=== PATIENT | female | born 1945 | race Caucasian/White ===

== ENCOUNTER 2017-03-14 19:44 | Inpatient (IN) | payer MEDICARE, OTHER ==
[~2017-03-14] VITALS: Ht 157.4 cm; Wt 60.5 kg
--- NOTE | ~2017-03-14 | PR ---
[place], [place] PROGRESS NOTE NAME: ISAIAH FUENTES UNIT #: [id number] ROOM: 530 DOCTOR: PAT ORTIZ DO BIRTHDATE: [birth year] DOS: 03/20/2017 SUBJECTIVE: The patient complains of ongoing poor appetite with persistent nausea, vomiting and diarrhea, though she states these are relatively unchanged. She states she is following her fluid restrictions without any difficulties and using sodium chloride tablets. PHYSICAL EXAMINATION: VITAL SIGNS: Her blood pressure 120/57, pulse 64, respiration 18, temperature is 98.6 degrees. GENERAL: She is a well-appearing female, awake, alert, oriented x 3, currently in no apparent distress. LUNGS: Clear to auscultation and percussion. HEART: Regular, without S4, S3 rub appreciated. ABDOMEN: Soft, positive bowel sounds x 4. EXTREMITIES: No clubbing, cyanosis, no edema noted. LABORATORY DATA: Sodium is 126, potassium is 3.1, chloride of 87, CO2 of 30, BUN of 10, creatinine 0.52, glucose is 205. Calcium is 9.4. WBC is , hemoglobin 15.2, hematocrit 44.0, platelets are 313,000. ASSESSMENT: 1. Hypo natremia. The patient is making additional improvement with use of sodium chloride tablets and fluid restrictions. Volume status appears to be satisfactory. Electrolytes are currently satisfactory. 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 RECOMMENDATIONS: Agree with current management. Follow electrolytes closely. PAT ORTIZ DO CM:PNTRANS [id number] PAT ORTIZ DO 03/20/17 1351 interface
--- NOTE | ~2017-03-14 | CON ---
[place], [place] REPORT OF CONSULTATION NAME: ISAIAH FUENTES UNIT #: [id number] ROOM: 530 DOCTOR: JD FRAZIER MD BIRTHDATE: [birth year] DOS: 03/15/2017 REASON FOR CONSULTATION: Hyponatremia, hypokalemia. HISTORY OF PRESENT ILLNESS: The patient is a very pleasant 71-year-old woman who normally receives her care at [facility] in [facility]. She was hospitalized with acute onset of shortness of breath through the Emergency Department. In general, she states that she has also had high regular migraine headaches. She reports a lot of intake of fluids. She was seen at the chiropractor yesterday and was somewhat dizzy. She does not report a lot of history. From sodium standpoint, she has been on chronic SSRIs with Zoloft per her report. She takes medicines for pain as needed, usually hydrocodone. She has also a history of incontinence, mostly stress incontinence, follows with Dr. Marks and is on Ditropan. She reports getting cystoscopies and getting bladder repairs and collagen injections reported as well. We are consulted because her laboratories indicated sodium of 119 yesterday and is up to 120 today, she received some saline for this. Potassium was also replaced, went down from 3.2 to 3.9. Creatinine is 0.39 with a blood urea nitrogen of 6 this morning. She does have diabetes. Her glucose is 195. Her albumin is pending and phosphorus was not done. Urinalysis initially showed specific gravity of less than 1.005, 1+ ketones, trace blood, rbc's 2-4, white blood cells 0, epithelial cells, 2-4, urine osmolality 335, urine sodium 45, urine potassium 33 and urine chloride 71. This was done though after she was already given IV fluids. Her chest radiograph, and she does have a smoking history, reported as normal, cardiomediastinal silhouette with chronic interstitial lung changes and right lower lobe atelectasis, but no overt masses were mentioned. REVIEW OF SYSTEMS: Negative except per the HPI. PAST MEDICAL HISTORY: Chronic pain, history of [place], CAD, hyperlipidemia, depression, hypokalemia, bladder incontinence and depression. SOCIAL HISTORY: Habit, habitual smoker, denies alcohol use. FAMILY HISTORY: Positive for cancer and heart disease. PHYSICAL EXAMINATION: VITAL SIGNS: Temperature 98.4, pulse 57, respirations 18, blood pressure 146/61, saturating 100% on room air. GENERAL: She is awake, alert, pleasant, age-appropriate female lying in bed comfortably. HEAD AND NECK: Sclerae are anicteric. Oropharynx is clear. Mucous membranes slightly dry. NECK: No JVD or lymphadenopathy. BACK: No bruits. LUNGS: Clear bilaterally, decreased breath sounds throughout. CARDIOVASCULAR: Regular rate. No audible rub. No palpable lift or heave. ABDOMEN: Soft, nontender, nondistended. No rebound, no guarding. No CVA tenderness. NEUROLOGIC: Gross motor and sensation is intact. Cranial nerves are grossly [place], [place] REPORT OF CONSULTATION NAME: ISAIAH FUENTES UNIT #: [id number] ROOM: [facility] DOCTOR: JD FRAZIER MD BIRTHDATE: [birth year] intact. PSYCHIATRIC: Mood, affect and insight, judgment and memory appear intact. SKIN: Without diffuse rashes or breakdowns. LABORATORY AND DIAGNOSTIC DATA: Sodium 120, up from 119, potassium 3.9, chloride 86, bicarbonate 26, BUN 6, creatinine 0.38, glucose 195. Urinalysis as above. Urine sodium 45, urine potassium 33, urine chloride 71. White blood cell count 7.8, hemoglobin 12.6, platelets 217. CT head without contrast, mild ischemic changes. CT neck, no acute fractures. Chest radiograph negative as per above. ASSESSMENT AND PLAN: Hyponatremia: This may be multifactorial, possible SIADH from drugs, possible underlying neoplasm given her smoking history, but also some polydipsia is likely presenting itself here as well. Urine osmolality was slightly low, but not as low as I would expect it for some simple polydipsia. Follow up levels and labs have been requested for later today at around 2:00 p.m. I encouraged her to remain in the hospital because she does want to leave because of the severe nature of the hyponatremia and the rapid correction and the possibility of chronic demyelination syndrome or CPM leaving her with permanent brain damage. She certainly does not want that. She vocalizes understanding of staying in the hospital. She does have hypertension. She does not report taking any diuretics, though she does have some hypokalemia what sounds like as a chronic basis that could be further evaluated perhaps down the road. I would probably recommend we can reduce her SSRI if okay with the primary team, but I would not discontinue it altogether quickly just in case, but she states that she was on this for a long time and her sodium levels that we have from 2013 were normal. I have requested a saline [facility] and PCP records in the last 2 years if we can find any more recent sodium levels that would be certainly helpful. Potassium has been replaced and we will continue to follow up on that as well. Thank you very much for the kind consultation. We will continue to follow with you. JD FRAZIER MD CM:CONSTR:REPORT OF CONSULTATION 1228 03/15/17 1359 interface
--- NOTE | ~2017-03-14 | PR ---
[place], [place] PROGRESS NOTE NAME: ISAIAH FUENTES UNIT #: [id number] ROOM: 530 DOCTOR: FREDDIE ENAMORADOJD S BIRTHDATE: [birth year] DOS: 03/16/2017 NEPHROLOGY PROGRESS NOTE SUBJECTIVE: The patient seen in followup of abnormal electrolytes. The patient is without acute distress. She is noted to have had a retroperitoneal mass and a mesenteric mass and she underwent CT-guided biopsy of that today. Pathology is still pending. She also went through a CT of the neck and soft tissue with no evidence of adenopathy there. Again, this mass was noted in conglomerate in the small bowel mesentery which increased from around 3 x 8 cm to 5 x 13 cm. From a renal standpoint, her sodium has improved on fluid restriction from 120 to 131 yesterday and is 130 today. Potassium slightly low at 3.1. She had some diarrhea noted yesterday. BUN and creatinine are 3 and 0.46 today. A1c is 6.9. LFTs are otherwise unremarkable. Dr. Sotelo has seen her from a hematology standpoint. Laboratories and diagnostics as mentioned above. PHYSICAL EXAMINATION: VITAL SIGNS: Temperature 97.7, pulse 94, respirations 18, blood pressure 142/86, 96% on room air. GENERAL: Awake, alert and oriented, in no acute distress, speaking on the phone with her . LUNGS: Decreased breath sounds, no audible rales. CARDIOVASCULAR: Rate regular. No audible rub. No palpable lift or heave. ABDOMEN: Soft, nontender, nondistended. No rebound, no guarding. No CVA tenderness. NEUROLOGIC: Mood and affect, speech and insight appear intact. SKIN: Without diffuse rashes or breakdown. LABORATORIES AND DIAGNOSTICS: Sodium 130, others as above. ASSESSMENT AND PLAN: Hyponatremia, multifactorial, possible syndrome of inappropriate antidiuretic hormone as well as possible neoplasm induced, some mild polydipsia may have presented itself with this as well from acute standpoint, but in general urine osmolality was a bit higher than I would expect for simple polydipsia. Her serum sodium has improved and is stable from yesterday, but did go down a bit, continue on a fluid restriction, encourage oral protein intake. She did have some diarrhea yesterday, and follow up biopsy results. Her hypokalemia has been replaced. Continue to follow on this as well. [place], [place] PROGRESS NOTE NAME: ISAIAH FUENTES UNIT #: [id number] ROOM: 530 DOCTOR: JD FRAZIER MD BIRTHDATE: [birth year] JD FRAZIER MD CM:PNTRANS [id number] 6 JD FRAZIER MD 03/17/17216 interface
--- NOTE | ~2017-03-14 | PR ---
[place], [place] PROGRESS NOTE NAME: ISAIAH FUENTES UNIT #: [id number] ROOM: 530 DOCTOR: JD FRAZIER MD BIRTHDATE: [birth year] DOS: 03/19/2017 SUBJECTIVE: The patient was seen in followup of hyponatremia. She was having some headaches. She was given some triptans as well, continues to have nausea, did eat a little bit breakfast, continues on fluid restriction. Sodium levels are unchanged compared to yesterday. Creatinine is stable, slightly below, but 0.55. She has been started on Toradol as well. Magnesium levels are low. Phosphorus levels are still slightly on the low side. IV fluids were stopped. PHYSICAL EXAMINATION: VITAL SIGNS: 98.0, 58, 20, 140/86, 97%. GENERAL: Elderly ill appearing, in distress from pain, not from and respiratory status, chronic smoking phenotype, lying in bed comfortably without significant work of breathing abnormalities. LUNGS: Clear bilaterally, but decreased breath sounds. CARDIOVASCULAR: Rate regular. No audible rub. ABDOMEN: Soft, nontender, nondistended. No rebound, no guarding. No CVA tenderness. LABORATORIES AND DIAGNOSTICS: Sodium 123, potassium 3.9, chloride 86, bicarbonate 29, BUN 7, creatinine 0.55, glucose 195, calcium 9.7, phosphorus 2.4, magnesium 1.4, albumin 3.5. ASSESSMENT AND PLAN: Hyponatremia, stable. Avoid IV fluids, likely SIADH, possibly secondary to her mass, also possible decreased intake as well as ongoing issues with pain and Nausea. Continue on 1 liter of fluid restriction, started on salt tablet yesterday. Replace hypomagnesemia today IV, may need to watch for acute kidney injury with ongoing NSAID use and rising creatinine slightly. JD FRAZEIR MD CM:PNTRANS 1351 05 JD FRAZIER MD 03/19/172305 interface
--- NOTE | ~2017-03-14 | PR ---
[place], [place] PROGRESS NOTE NAME: ISAIAH FUENTES UNIT #: [id number] ROOM: 530 DOCTOR: JOIE RUSSELL MD BIRTHDATE: [birth year] DOS: 03/20/2017 SUBJECTIVE: The patient is doing better. She is awake, alert and responsive. REVIEW OF SYSTEMS: HEENT: No trouble swallowing. No double vision. No loss of vision. No pain. ENT AND RESPIRATORY: No wheeze. No change in voice. No cough. No shortness of breath. No coughing up blood. No epistaxis. CARDIOLOGIC: No chest pain. No dizziness. No irregular heartbeat. No leg edema. No palpitations. No shortness of breath. HEMATOLOGIC AND LYMPH: No past transfusion. No fatigue. No loss of appetite. No easy bruising. GASTROENTEROLOGIC: No change in bowel habits. No vomiting blood. No abdominal cramping. No nausea. No vomiting. No diarrhea. No constipation. No blood in stool. FEMALE REPRODUCTIVE: No dyspareunia. No pelvic pain. MUSCULOSKELETAL: No back pain. No muscle pain or weakness. No tingling/numbness. UROLOGIC: No pain with urination. No difficulty urinating. No frequent urination. NEUROLOGIC: No burning pain in feet. No trouble with coordination. No loss of consciousness. No headache. No tingling/numbness. No memory loss. PHYSICAL EXAMINATION: GENERAL: She is a pleasant woman, in no apparent distress. VITAL SIGNS: Blood pressure 146/66, respirations 16, pulse 63 and temperature 98.3. HEENT: Normocephalic, atraumatic. NECK AND THYROID: Supple. No JVD, thyromegaly or lymphadenopathy. HEART: Normal S1, S2. Regular rate and rhythm. LUNGS: Clear to auscultation and percussion. ABDOMEN: Soft. Nontender, nondistended. Bowel sounds present. EXTREMITIES: Normal ROM. No clubbing. No edema. LABORATORY DATA: White count 11.3, hemoglobin 15.2, hematocrit 44.0, MCV 87.5 and platelet count of ____. Sodium 126, potassium 3.9, chloride 87, bicarbonate 30 and EGFR is more than 60. ASSESSMENT: 1. Status post retroperitoneal biopsy, results are pending. 2. Hyponatremia. 3. Hypokalemia. PLAN: We will discuss with ____ about the biopsy reports depending on further intervention. I had a detailed discussion with the patient about it, seemed to understand it. Ample time was given to the patient to ask me questions. [place], [place] PROGRESS NOTE NAME: ISAIAH FUENTES UNIT #: [id number] ROOM: [facility] DOCTOR: JOIE RUSSELL MD BIRTHDATE: [birth year] JOIE RUSSELL MD CM:SELENE 1321 1344 JOIE RUSSELL MD 03/20/17 1343 interface
--- NOTE | ~2017-03-14 | PR ---
[place], [place] PROGRESS NOTE NAME: ISAIAH FUENTES UNIT #: [id number] ROOM: 530 DOCTOR: JOIE RUSSELL MD BIRTHDATE: [birth year] DOS: 03/18/2017 SUBJECTIVE: The patient is doing better. She is awake, alert and responsive. She had a retroperitoneal biopsy done, the results are pending. REVIEW OF SYSTEMS HEENT: No trouble swallowing. No double vision. No loss of vision. No pain. ENT AND RESPIRATORY: No wheeze. No change in voice. No cough. No shortness of breath. No coughing up blood. No epistaxis. CARDIOLOGIC: No chest pain. No dizziness. No irregular heartbeat. No leg edema. No palpitations. No shortness of breath. HEMATOLOGIC AND LYMPH: No past transfusion. No fatigue. No loss of appetite. No easy bruising. GASTROENEROLOGIC: No change in bowel habits. No vomiting blood. No abdominal cramping. No nausea. No vomiting. No diarrhea. No constipation. No blood in stool. FEMALE REPRODUCTIVE: No dyspareunia. No pelvic pain. MUSCULOSKELETAL: No back pain. No muscle pain or weakness. No tingling/numbness. UROLOGIC: No pain with urination. No difficulty urinating. No frequent urination. NEUROLOGIC: No burning pain in feet. No trouble with coordination. No loss of consciousness. No headache. No tingling/numbness. No memory loss. PHYSICAL EXAMINATION GENERAL: On examination, a pleasant woman, in no apparent distress. VITAL SIGNS: Stable. She is afebrile. HEENT: Normocephalic, atraumatic. NECK AND THYROID: Supple. No JVD, thyromegaly, or lymphadenopathy. HEART: Normal S1, S2. Regular rate and rhythm. LUNGS: Clear to auscultation and percussion. ABDOMEN: Soft. Nontender, nondistended. Bowel sounds present. EXTREMITIES: Normal ROM. No clubbing. No edema. LABORATORY DATA: Glucose of 204, BUN of 4, EGFR is more than 60. Sodium 143, potassium 3.2, chloride 86, bicarbonate 28, calcium 9.2, phosphorus 2.5, albumin 3.6. White count of 8.4, hemoglobin 14.1, hematocrit 41.2, MCV 88.4, platelet count 250, lymphocyte percentage was 10.1. ALT is 900. RADIOLOGY DATA: CT of the head showed no evidence of cervical lymphadenopathy. CT of the head showed no intracranial abnormalities. ASSESSMENT: 1. Retroperitoneal lymphadenopathy, status post CT-guided biopsy. 2. Hyponatremia. 3. Major depression. 4. Coronary artery disease. PLAN: She had a biopsy done. We will wait for the path reports to come back. Depending upon that further intervention. In the meantime, I reviewed the CAT [place], [place] PROGRESS NOTE NAME: ISAIAH FUENTES UNIT #: [id number] ROOM: [facility] DOCTOR: JOIE RUSSELL MD BIRTHDATE: [birth year] scans. I have discussed the patient in detail. Ample time was given to the patient to ask me questions. JOIE RUSSELL MD CM:PNTRANS [phone] JOIE RUSSELL MD 03/19/17 0237 interface
--- NOTE | ~2017-03-14 | PR ---
[place], [place] PROGRESS NOTE NAME: ISAIAH FUENTES UNIT #: [id number] ROOM: 530 DOCTOR: JOIE RUSSELL MD BIRTHDATE: [birth year] DOS: 03/19/2017 SUBJECTIVE: The patient is doing better. She is awake, alert and responsive. PHYSICAL EXAMINATION: GENERAL: Pleasant woman in no apparent distress. VITAL SIGNS: Stable. She is afebrile. HEENT: Normocephalic, atraumatic NECK AND THYROID: Supple. No JVD, thyromegaly, or lymphadenopathy. HEART: Normal S1, S2. Regular rate and rhythm. LUNGS: Clear to auscultation and percussion. ABDOMEN: Soft. Nontender, nondistended. Bowel sounds present. EXTREMITIES: Normal ROM. No clubbing. No edema. LABORATORY DATA: Sodium 123, potassium 3.2, chloride 86. ASSESSMENT: 1. Status post biopsy of the retroperitoneal lymph nodes. 2. Hypokalemia. 3. Hyponatremia. PLAN: I checked the path reports, which are pending at this time. I am going to talk to the pathologist. Depending upon that, further intervention discussed. JOIE RUSSELL MD CM:SELENE 1334 [id number] JOIE RUSSELL MD 03/19/17 1418 interface
--- NOTE | ~2017-03-14 | PR ---
[place], [place] PROGRESS NOTE NAME: ISAIAH FUENTES UNIT #: [id number] ROOM: 530 DOCTOR: JOIE RUSSELL MD BIRTHDATE: [birth year] DOS: 03/17/2017 SUBJECTIVE: The patient is doing better. She had a percutaneous biopsy of the retroperitoneal mass, path is pending. PHYSICAL EXAMINATION: GENERAL: She is pleasant woman in no apparent distress. VITAL SIGNS: Stable. She is afebrile. HEENT: Normocephalic, atraumatic. NECK AND THYROID: Supple. No JVD, thyromegaly, or lymphadenopathy. HEART: Normal S1, S2. Regular rate and rhythm. LUNGS: Clear to auscultation and percussion. ABDOMEN: Soft. Nontender, nondistended. Bowel sounds present. EXTREMITIES: Normal ROM. No clubbing. No edema. LABORATORY DATA: Sodium 130, potassium 3.1, chloride 94, bicarbonate 29. White count of 8.0, hemoglobin 14.1, hematocrit 40.6, platelet count of 261. ASSESSMENT: 1. Status post percutaneous biopsy of the retroperitoneal mass by Radiology. 2. Hyponatremia. 3. Hypokalemia. PLAN: We will wait for the biopsy reports to come back depending on the further intervention. I had detailed discussion with the patient about it, seemed to understand it. JOIE RUSSELL MD CM:PNTRANS [id number] JOIE RUSSELL MD 03/19/17 0345 interface
--- NOTE | ~2017-03-14 | CON ---
[place], [place] REPORT OF CONSULTATION NAME: ISAIAH FUENTES UNIT #: [id number] ROOM: 530 DOCTOR: JOIE RUSSELL MD BIRTHDATE: [birth year] DOS: 03/16/2017 HISTORY OF PRESENT ILLNESS: The patient is a pleasant 71-year-old [place] woman who presented to the Emergency Department with severe migraine headaches after she went to the chiropractor. As per the daughter, the chiropractor released a lot of pressure in the back and then she started having headaches. While in the ER, she was found to be hyponatremic as well as hypovolemic. Further workup revealed mesenteric mass and I am consulted for further evaluation and management. PAST MEDICAL HISTORY: Significant for chronic low back pain, history of VT, hyperlipidemia, hypokalemia, lower GI bleed, major depression and overactive bladder. PAST SURGICAL HISTORY: History of coronary artery stent, status post left heart catheterization, history of cholecystectomy, x 3 and bladder surgery. SOCIAL HISTORY: No drinking or drug abuse. She is a smoker. FAMILY HISTORY: Father of cancer. Mother of heart disease and cardiac disease. ALLERGIES: ACETAMINOPHEN, METOPROLOL, OXYCODONE. MEDICATIONS: Aspirin, atorvastatin, carvedilol, hydrocodone, oxybutynin, sodium pantoprazole, potassium chloride and sertraline. RADIOLOGY: CT scan of the cervical spine showed no acute fracture. CT scan of the head showed no acute abnormalities. CT of the chest, abdomen and pelvis showed a conglomerate mass in the small bowel mesentery as well as mildly enlarged metastatic nodes suspicious for malignancy. Consideration should be given for lymphoma. There is colonic diverticulosis. No findings of diverticulitis. REVIEW OF SYSTEMS: CONSTITUTIONAL: No chills. No fatigue. No fever. No loss of appetite. No night sweats. No weakness. No weight loss. HEENT: No trouble swallowing. No loss of smell. No loss of hearing. No double vision. No pain. No discharge. ENT AND RESPIRATORY: No wheeze. No sore throat. No change in voice. No hearing loss. No nose bleed. No cough. No trouble breathing through nose. No shortness of breath. No coughing up blood. No epistaxis. CARDIOVASCULAR: No chest pain. No dizziness. No irregular heartbeat. No leg edema. No pain in legs while walking. No palpitations. No shortness of breath. DERMATOLOGIC: No acne. No hives. No laceration. No mole. No rash. ENDOCRINE: No cold intolerance. No diabetes. No fatigue. No hot flashes. No polydipsia. No polyuria. No urinating frequently. No weight loss. HEMATOLOGIC AND LYMPH: No fatigue. No easy bruising. GASTROENTEROLOGIC: No change in bowel habits. No indigestion. No frequent [place], [place] REPORT OF CONSULTATION NAME: ISAIAH FUENTES UNIT #: [id number] ROOM: [facility] DOCTOR: JOIE RUSSELL MD BIRTHDATE: [birth year] bloating. No vomiting blood. No abdominal cramping. No nausea. No heartburn. No vomiting. No abdominal pain. No dysphagia. No diarrhea. No constipation. No blood in stool. FEMALE REPRODUCTIVE: No vaginal itching. No difficulty urinating. No heavy periods. No dyspareunia. No sexually active. No dysmenorrhea. No pelvic pain. No breast pain. No nipple discharge. No abnormal vaginal discharge. No hot flashes. MUSCULOSKELETAL: No back pain. No muscle pain or weakness. No neck pain. No tingling/numbness. No swelling/bruising. No osteoporosis treatment. OPTHALMOLOGIC: No double vision. No diminished vision. No loss of vision. UROLOGIC: No dysuria. No frequent nighttime urination. No irregular periods. No pain with urination. No difficulty urinating. No blood in urine. No frequent urination. No urinary incontinence. NEUROLOGIC: No loss of sensation in specific body area. No vertigo. No burning pain in feet. No trouble with balance. No trouble with coordination. No loss of consciousness. No loss of feeling/power. No confusion. No headache. No tingling/numbness. PSYCHOLOGIC: No tinnitus. No headaches. No shortness of breath. No weight decrease. No nausea. No vomiting. No abdominal discomfort. No constipation. No diarrhea. No depression. No anxiety. PHYSICAL EXAMINATION: GENERAL: She is a pleasant woman, in no apparent distress. VITAL SIGNS: Stable. She is afebrile. HEENT: Oral mucosa appears intact. The external ears are normal in appearance. Nares are patent without lesions, exudates, erythema, or inflammation. Tongue is symmetrical. Uvula is midline. NECK AND THYROID: Neck supple without palpable masses. Trachea is midline. No thyromegaly. No carotid bruit or JVD. BREASTS: Normal. Nipples unremarkable. No drainage. No lumps felt on either side. HEART: Normal S1, S2, without significant murmur, rub, or gallop. LUNGS: Clear to auscultation and percussion with good air entry bilaterally. The patient is breathing easily without the use of accessory muscles. Diaphragmatic excursions are intact. ABDOMEN: No costovertebral angle tenderness. Soft. No organomegaly or masses. Nontender. No hernias present. Liver and spleen are not palpable. LYMPHATIC: No adenopathy noted in the cervical, supraclavicular, axillary or inguinal regions. NEUROLGIC: Nonfocal. Oriented to person, place, and time. MENTAL STATUS: Appropriate for mood and affect. PERIPHERAL PULSES: No varicosities. Femoral and pedal pulses are palpable. EXTREMITIES: Without cyanosis, clubbing or edema. No gross anomalies. ASSESSMENT: 1. Mesenteric mass. 2. Hyponatremia. 3. Hypokalemia. 4. Low back pain. [place], [place] REPORT OF CONSULTATION NAME: ISAIAH FUENTES UNIT #: [id number] ROOM: [facility] DOCTOR: JOIE RUSSELL MD BIRTHDATE: [birth year] PLAN: Possibility of lymphoma. We will ask Dr. Javier to do a biopsy so that we can get a bigger piece to see if she has enough specimen to evaluate for lymphoma. Depending upon that further intervention will be done. In the meantime, she will be followed by Renal also. Ample time was given to the patient to ask me questions. We will follow. Thanks for consulting and letting me participate in the care of this patient. JOIE RUSSELL MD CM:CONSTR:REPORT OF CONSULTATION 0933 03/19/17 0315 interface
--- NOTE | ~2017-03-14 | PR ---
[place], [place] PROGRESS NOTE NAME: ISAIAH FUENTES UNIT #: [id number] ROOM: 530 DOCTOR: JOIE RUSSELL MD BIRTHDATE: [birth year] DOS: 03/16/2017 The patient was seen because of mesenteric lymphadenopathy and mass and weight loss. Full consult to follow. We will be asking Dr. Nix for possible biopsy of the mesenteric mass. These were discussed with the patient. JOIE RUSSELL MD CM:PNTRANS 0845 4 JOIE RUSSELL MD 03/16/1725 interface
[~2017-03-14 19:44] MED LIST: HYDROCODONE BIT1 T11 PO; K-DUR 2020 MEQ PO; LIPITOR80 MG PO; OXYBUTYNIN CHLOR5 MG PO; PROTONIX40 MG PO; SERTRALINE HYD100 MG PO; [UNRECOGNIZED DRUG - OTHER] PO
[2017-03-14 19:53] VITALS: BP 153/87
[2017-03-14 22:07] VITALS: BP 142/68
[2017-03-14 22:18] LABS: BASO % 0.3 % (0.0-1.0); EOS # 0.1 10*3/uL (0.0-0.4); EOS % 0.9 % (1.0-4.0); HEMATOCRIT 35.7 % (37.0-47.0); HEMOGLOBIN 12.6 g/dl (12.0-16.0); LYMPH # 0.9 10*3/uL (1.3-4.4); LYMPH % 10.8 % (27.0-41.0); MEAN CELL VOLUME 86.9 fl (81.0-99.0); MEAN CORPUSCULAR HGB 30.7 pg (27.0-31.0); MEAN CORPUSCULAR HGB CONC 35.3 g/dl (33.0-37.0); MEAN PLATELET VOLUME 10.4 fl (9.6-12.3); MONO # 0.9 10*3/uL (0.1-1.0); MONO % 11.2 % (3.0-9.0); NEUT % 76.5 % (47.0-73.0); PLATELET COUNT AUTOMATED 217 10*3/uL (130-400); RED BLOOD COUNT 4.11 10*6/uL (4.10-5.10); RED CELL DISTRI WIDTH 13.8 % (0-14.5); WHITE BLOOD COUNT 7.8 10*3/uL (4.8-10.8)
[2017-03-14 22:33] LABS: BUN 8 mg/dl (7-24); C-REACTIVE PROTEIN 0.36 MG/DL (0-0.3); CARBON DIOXIDE 23 mmol/L (21-32); CHLORIDE 85 mmol/L (98-107); EST GLOM FILT AFRICAN AMERICAN > 60 ml/min; GLUCOSE 193 mg/dL (65-99); POTASSIUM 3.2 mmol/L (3.5-5.1)
[2017-03-14 22:36] LABS: SODIUM 119 mmol/L (136-145)
[2017-03-14 22:48] VITALS: BP 136/74
[2017-03-14 23:52] VITALS: BP 145/90
[2017-03-15] MEDS ORDERED: COREG3.125 MG PO (00:09)
[2017-03-15] MEDS ORDERED: LIPITOR80 MG PO (00:13)
[2017-03-15] MEDS ORDERED: ASPIRIN CHEWABL81 MG PO (00:16)
[2017-03-15 04:00] VITALS: BP 145/90
[2017-03-15 06:47] LABS: BILIRUBIN NEGATIVE (NEGATIVE); BLOOD TRACE-INTACT (NEGATIVE); CLARITY CLEAR (CLEAR); COLOR YELLOW (YELLOW); GLUCOSE 3+ (NEGATIVE); KETONE 1+ (NEGATIVE); LEUKO ESTERASE NEGATIVE (NEGATIVE); NITRITE NEGATIVE (NEGATIVE); PROTEIN NEGATIVE (NEGATIVE); SPECIFIC GRAVITY <= 1.005 (1.005-1.030)
[2017-03-15 06:58] LABS: BACTERIA TRACE; WBC 0-2 wbc/hpf (0-5)
[2017-03-15 06:59] LABS: URINE REFLEX COMMENT NO (NO)
[2017-03-15 07:45] LABS: BUN 6 mg/dl (7-24); CARBON DIOXIDE 26 mmol/L (21-32); CHLORIDE 86 mmol/L (98-107); EST GLOM FILT AFRICAN AMERICAN > 60 ml/min; GLUCOSE 195 mg/dL (65-99); POTASSIUM 3.9 mmol/L (3.5-5.1); SODIUM 120 mmol/L (136-145)
[2017-03-15 08:00] VITALS: BP 146/60
[2017-03-15 12:00] VITALS: BP 136/47
[2017-03-15 14:21] LABS: ALBUMIN 3.3 gm/dl (3.1-4.5); BUN 3 mg/dl (7-24); CARBON DIOXIDE 31 mmol/L (21-32); CHLORIDE 95 mmol/L (98-107); EST GLOM FILT AFRICAN AMERICAN > 60 ml/min; GLUCOSE 140 mg/dL (65-99); PHOSPHOROUS 2.4 mg/dL (2.5-4.9); POTASSIUM 4.2 mmol/L (3.5-5.1); SODIUM 131 mmol/L (136-145)
[2017-03-15 16:00] VITALS: BP 154/48
[2017-03-15 20:00] VITALS: BP 142/63; BP 1548/58
[2017-03-16] VITALS (13 sets, daily range): BP systolic 120–152; BP diastolic 44–91
[2017-03-16] MEDS ORDERED: HYDROCODONE BIT1 T20 PO (04:55)
[2017-03-16 06:57] LABS: BASO % 0.4 % (0.0-1.0); EOS % 0.3 % (1.0-4.0); HEMATOCRIT 40.6 % (37.0-47.0); HEMOGLOBIN 14.1 g/dl (12.0-16.0); LYMPH # 0.6 10*3/uL (1.3-4.4); MEAN CELL VOLUME 87.7 fl (81.0-99.0); MEAN CORPUSCULAR HGB 30.5 pg (27.0-31.0); MEAN CORPUSCULAR HGB CONC 34.7 g/dl (33.0-37.0); MONO # 0.8 10*3/uL (0.1-1.0); MONO % 9.6 % (3.0-9.0); NEUT # 6.5 10*3/uL (2.3-7.9); NEUT % 81.2 % (47.0-73.0); PLATELET COUNT AUTOMATED 261 10*3/uL (130-400); RED BLOOD COUNT 4.63 10*6/uL (4.10-5.10); RED CELL DISTRI WIDTH 14.1 % (0-14.5)
[2017-03-16 07:10] LABS: HEMOGLOBIN A1c 6.9 % (4.8-5.6)
[2017-03-16 07:29] LABS: ALBUMIN 3.5 gm/dl (3.1-4.5); CARBON DIOXIDE 29 mmol/L (21-32); CHLORIDE 94 mmol/L (98-107); GLUCOSE 156 mg/dL (65-99); SODIUM 130 mmol/L (136-145)
[2017-03-16 07:32] LABS: ALKALINE PHOSPHATASE 96 U/L (45-117); BILIRUBIN, TOTAL 0.7 mg/dl (0.2-1.0); BUN 3 mg/dl (7-24); EST GLOM FILT AFRICAN AMERICAN > 60 ml/min; SGOT/AST 15 IU/L (3-35); SGPT/ALT 17 U/L (12-78); TOTAL PROTEIN 6.8 gm/dL (6.4-8.2)
[2017-03-16 07:33] LABS: POTASSIUM 3.1 mmol/L (3.5-5.1)
[2017-03-16 12:17] LABS: INTERNATIONAL NORM RATIO 1.1 (2.0-3.5); PROTHROMBIN TIME 11.9 SECONDS (9.0-12.4)
[2017-03-17] VITALS: BP 149/55
[2017-03-17 07:13] LABS: BASO % 0.5 % (0.0-1.0); EOS # 0.1 10*3/uL (0.0-0.4); EOS % 0.8 % (1.0-4.0); HEMATOCRIT 41.2 % (37.0-47.0); HEMOGLOBIN 14.1 g/dl (12.0-16.0); LYMPH # 0.9 10*3/uL (1.3-4.4); LYMPH % 10.1 % (27.0-41.0); MEAN CELL VOLUME 88.4 fl (81.0-99.0); MEAN CORPUSCULAR HGB 30.3 pg (27.0-31.0); MEAN CORPUSCULAR HGB CONC 34.2 g/dl (33.0-37.0); MEAN PLATELET VOLUME 10.8 fl (9.6-12.3); MONO # 0.8 10*3/uL (0.1-1.0); MONO % 9.9 % (3.0-9.0); NEUT # 6.6 10*3/uL (2.3-7.9); NEUT % 78.2 % (47.0-73.0); PLATELET COUNT AUTOMATED 250 10*3/uL (130-400); RED BLOOD COUNT 4.66 10*6/uL (4.10-5.10); RED CELL DISTRI WIDTH 14.2 % (0-14.5); WHITE BLOOD COUNT 8.4 10*3/uL (4.8-10.8)
[2017-03-17 07:47] LABS: BUN 6 mg/dl (7-24); CARBON DIOXIDE 28 mmol/L (21-32); CHLORIDE 90 mmol/L (98-107); GLUCOSE 212 mg/dL (65-99); POTASSIUM 3.5 mmol/L (3.5-5.1); SODIUM 127 mmol/L (136-145)
[2017-03-17 07:48] LABS: EST GLOM FILT AFRICAN AMERICAN > 60 ml/min
[2017-03-17 08:00] VITALS: BP 154/60
[2017-03-17 12:00] VITALS: BP 136/44
[2017-03-17 14:02] LABS: ALBUMIN 3.2 gm/dl (3.1-4.5); BUN 6 mg/dl (7-24); CARBON DIOXIDE 26 mmol/L (21-32); CHLORIDE 91 mmol/L (98-107); EST GLOM FILT AFRICAN AMERICAN > 60 ml/min; GLUCOSE 273 mg/dL (65-99); POTASSIUM 3.6 mmol/L (3.5-5.1); SODIUM 127 mmol/L (136-145)
[2017-03-17 14:03] LABS: PHOSPHOROUS 1.9 mg/dL (2.5-4.9)
[2017-03-17 16:00] VITALS: BP 146/48
[2017-03-17 20:00] VITALS: BP 159/65
[2017-03-18] VITALS: BP 150/64
[2017-03-18 08:00] VITALS: BP 150/48
[2017-03-18 08:18] LABS: ALBUMIN 3.6 gm/dl (3.1-4.5); BUN 4 mg/dl (7-24); CARBON DIOXIDE 28 mmol/L (21-32); CHLORIDE 86 mmol/L (98-107); EST GLOM FILT AFRICAN AMERICAN > 60 ml/min; GLUCOSE 204 mg/dL (65-99); PHOSPHOROUS 2.5 mg/dL (2.5-4.9); POTASSIUM 3.2 mmol/L (3.5-5.1); SODIUM 123 mmol/L (136-145)
[2017-03-18 12:00] VITALS: BP 122/50
[2017-03-18 16:00] VITALS: BP 116/46
[2017-03-19] VITALS: BP 170/76
[2017-03-19 06:03] LABS: BASO % 0.3 % (0.0-1.0); EOS # 0.1 10*3/uL (0.0-0.4); EOS % 0.6 % (1.0-4.0); HEMATOCRIT 42.7 % (37.0-47.0); HEMOGLOBIN 15.1 g/dl (12.0-16.0); LYMPH % 11.2 % (27.0-41.0); MEAN CELL VOLUME 87.9 fl (81.0-99.0); MEAN CORPUSCULAR HGB 31.1 pg (27.0-31.0); MEAN CORPUSCULAR HGB CONC 35.4 g/dl (33.0-37.0); MEAN PLATELET VOLUME 10.8 fl (9.6-12.3); MONO % 11.2 % (3.0-9.0); NEUT # 6.6 10*3/uL (2.3-7.9); NEUT % 76.4 % (47.0-73.0); PLATELET COUNT AUTOMATED 280 10*3/uL (130-400); RED BLOOD COUNT 4.86 10*6/uL (4.10-5.10); RED CELL DISTRI WIDTH 13.9 % (0-14.5); WHITE BLOOD COUNT 8.7 10*3/uL (4.8-10.8)
[2017-03-19 06:12] LABS: ALBUMIN 3.5 gm/dl (3.1-4.5); BUN 7 mg/dl (7-24); CARBON DIOXIDE 29 mmol/L (21-32); CHLORIDE 86 mmol/L (98-107); EST GLOM FILT AFRICAN AMERICAN > 60 ml/min; GLUCOSE 195 mg/dL (65-99); MAGNESIUM 1.4 mg/dL (1.5-2.1); PHOSPHOROUS 2.4 mg/dL (2.5-4.9); POTASSIUM 3.9 mmol/L (3.5-5.1); SODIUM 123 mmol/L (136-145)
[2017-03-19 08:00] VITALS: BP 156/76
[2017-03-19 12:00] VITALS: BP 140/86
[2017-03-19 16:00] VITALS: BP 138/57
[2017-03-19 20:00] VITALS: BP 101/78
[2017-03-20] VITALS: BP 131/59
[2017-03-20 05:59] LABS: BUN 10 mg/dl (7-24); CARBON DIOXIDE 30 mmol/L (21-32); CHLORIDE 87 mmol/L (98-107); EST GLOM FILT AFRICAN AMERICAN > 60 ml/min; GLUCOSE 205 mg/dL (65-99); POTASSIUM 3.9 mmol/L (3.5-5.1); SODIUM 126 mmol/L (136-145)
[2017-03-20 06:02] LABS: BASO # 0.1 10*3/uL (0.0-0.1); BASO % 0.4 % (0.0-1.0); EOS % 0.4 % (1.0-4.0); HEMOGLOBIN 15.2 g/dl (12.0-16.0); IG # 0.1 10*3/uL (0.0-0.1); LYMPH # 0.9 10*3/uL (1.3-4.4); LYMPH % 8.3 % (27.0-41.0); MEAN CELL VOLUME 87.5 fl (81.0-99.0); MEAN CORPUSCULAR HGB 30.2 pg (27.0-31.0); MEAN CORPUSCULAR HGB CONC 34.5 g/dl (33.0-37.0); MEAN PLATELET VOLUME 10.8 fl (9.6-12.3); MONO # 1.1 10*3/uL (0.1-1.0); MONO % 9.5 % (3.0-9.0); NEUT # 9.1 10*3/uL (2.3-7.9); NEUT % 80.9 % (47.0-73.0); PLATELET COUNT AUTOMATED 313 10*3/uL (130-400); RED BLOOD COUNT 5.03 10*6/uL (4.10-5.10); RED CELL DISTRI WIDTH 14.1 % (0-14.5); WHITE BLOOD COUNT 11.3 10*3/uL (4.8-10.8)
[2017-03-20 08:00] VITALS: BP 146/66
[2017-03-20 11:52] VITALS: BP 120/57
[2017-03-20] MEDS ORDERED: SODIUM CHLORIDE1 GM PO (13:27)
[2017-03-20] MEDS ORDERED: SUMATRIPTAN SUC50 M1 PO (13:27)
== END 2017-03-20 15:30 | disposition home or self-care (01) | DRG 629 ==
LOC: ED 19:44 → 5E 23:07 → EDHOLD 23:07 → 5E 23:27
PROVIDERS: Emergency Medicine Emergency Medical Services; Family Medicine; Internal Medicine; Internal Medicine Nephrology
PROC: 07BB3ZX Excision of Mesenteric Lymphatic, Percutaneous Approach, Diagnostic (ICD-10-PCS; principal; 2017-03-14)
DX: E22.2 Syndrome of inappropriate secretion of antidiuretic hormone (principal); E44.0 Moderate protein-calorie malnutrition; J44.9 Chronic obstructive pulmonary disease, unspecified; R19.00 Intra-abdominal and pelvic swelling, mass and lump, unspecified site; E11.9 Type 2 diabetes mellitus without complications; N32.81 Overactive bladder; I25.10 Atherosclerotic heart disease of native coronary artery without angina pectoris; R59.1 Generalized enlarged lymph nodes; F17.200 Nicotine dependence, unspecified, uncomplicated; E87.6 Hypokalemia; F32.9 Major depressive disorder, single episode, unspecified; G89.29 Other chronic pain; M54.5 Low back pain; E78.5 Hyperlipidemia, unspecified; G43.009 Migraine without aura, not intractable, without status migrainosus; Z88.6 Allergy status to analgesic agent; Z88.8 Allergy status to other drugs, medicaments and biological substances; Z82.49 Family history of ischemic heart disease and other diseases of the circulatory system; Z83.6 Family history of other diseases of the respiratory system; Z68.26 Body mass index [BMI] 26.0-26.9, adult; I25.2 Old myocardial infarction; Z95.818 Presence of other cardiac implants and grafts; Z90.49 Acquired absence of other specified parts of digestive tract; Z80.9 Family history of malignant neoplasm, unspecified; Z79.82 Long term (current) use of aspirin; Z79.899 Other long term (current) drug therapy; Z71.3 Dietary counseling and surveillance

== ENCOUNTER 2017-03-21 18:55 | Emergency (ER) | payer MEDICARE, OTHER ==
[~2017-03-21] VITALS: Ht 157.4 cm; Wt 61.2 kg
[~2017-03-21 18:55] MED LIST changes: +ASPIRIN CHEWABL81 MG PO; +COREG3.125 MG PO; +HYDROCODONE BIT1 T20 PO; +SODIUM CHLORIDE1 GM PO; +SUMATRIPTAN SUC50 M1 PO
[2017-03-21 19:34] LABS: BASO % 0.3 % (0.0-1.0); EOS % 0.2 % (1.0-4.0); HEMATOCRIT 41.5 % (37.0-47.0); IG # 0.1 10*3/uL (0.0-0.1); LYMPH # 0.7 10*3/uL (1.3-4.4); LYMPH % 7.2 % (27.0-41.0); MEAN CORPUSCULAR HGB 30.7 pg (27.0-31.0); MEAN CORPUSCULAR HGB CONC 36.1 g/dl (33.0-37.0); MEAN PLATELET VOLUME 10.6 fl (9.6-12.3); MONO # 0.8 10*3/uL (0.1-1.0); MONO % 8.3 % (3.0-9.0); NEUT # 7.8 10*3/uL (2.3-7.9); NEUT % 83.5 % (47.0-73.0); PLATELET COUNT AUTOMATED 338 10*3/uL (130-400); RED BLOOD COUNT 4.88 10*6/uL (4.10-5.10); RED CELL DISTRI WIDTH 13.5 % (0-14.5); WHITE BLOOD COUNT 9.3 10*3/uL (4.8-10.8)
[2017-03-21 19:43] LABS: INTERNATIONAL NORM RATIO 1.1 (2.0-3.5); PROTHROMBIN TIME 11.5 SECONDS (9.0-12.4)
[2017-03-21 19:52] LABS: ALBUMIN 3.2 gm/dl (3.1-4.5); ALKALINE PHOSPHATASE 100 U/L (45-117); BILIRUBIN, TOTAL 0.8 mg/dl (0.2-1.0); BUN 7 mg/dl (7-24); CARBON DIOXIDE 26 mmol/L (21-32); CHLORIDE 81 mmol/L (98-107); EST GLOM FILT AFRICAN AMERICAN > 60 ml/min; GLUCOSE 320 mg/dL (65-99); POTASSIUM 3.5 mmol/L (3.5-5.1); SGOT/AST 19 IU/L (3-35); SGPT/ALT 21 U/L (12-78); TOTAL PROTEIN 7.1 gm/dL (6.4-8.2)
[2017-03-21 19:56] LABS: SODIUM 116 mmol/L (136-145)
[2017-03-21 19:57] LABS: TROPONIN I 0.155 ng/ml (<0.045)
== END 2017-03-21 22:03 | disposition short-term general hospital (02) ==
LOC: ED 18:55
PROVIDERS: Physician Assistant
DX: E87.1 Hypo-osmolality and hyponatremia (principal); R79.89 Other specified abnormal findings of blood chemistry; I48.91 Unspecified atrial fibrillation; R19.7 Diarrhea, unspecified; M54.9 Dorsalgia, unspecified; H53.2 Diplopia; H53.8 Other visual disturbances; R53.1 Weakness; R51 Headache; F17.200 Nicotine dependence, unspecified, uncomplicated; R11.2 Nausea with vomiting, unspecified; Z88.6 Allergy status to analgesic agent; Z79.82 Long term (current) use of aspirin; Z79.899 Other long term (current) drug therapy

== ENCOUNTER 2017-11-24 18:05 | Emergency (ER) | payer MEDICARE, OTHER ==
[~2017-11-24] VITALS: Wt 54.4 kg
--- NOTE | ~2017-11-24 | EKG ---
[place], [place] ELECTROCARDIOGRAM REPORT NAME: ISAIAH FUENTES UNIT #: [id number] ROOM: DOCTOR: BLOSSOM BRIDGES MD BIRTHDATE: [birth year] DOS: 11/24/2017 TIME: 1836 hours. FINDINGS: 1. Atrial fibrillation with ventricular rate of 78 beats per minute. 2. Probably old anterior wall myocardial infarction. 3. An intraventricular conduction defect is also present. 4. An abnormal ECG. 5. No previous tracing is available for comparison. BLOSSOM BRIDGES MD CM:EKGRPT:ELECTROCARDIOGRAM REPORT 1644 1828 BLOSSOM BRIDGES MD
[2017-11-24 19:04] LABS: HEMATOCRIT 24.9 % (37.0-47.0); MEAN CELL VOLUME 77.1 fl (81.0-99.0); MEAN CORPUSCULAR HGB 24.8 pg (27.0-31.0); MEAN CORPUSCULAR HGB CONC 32.1 g/dl (33.0-37.0); MEAN PLATELET VOLUME 9.6 fl (9.6-12.3); PLATELET COUNT AUTOMATED 490 10*3/uL (130-400); RED BLOOD COUNT 3.23 10*6/uL (4.10-5.10); RED CELL DISTRI WIDTH 18.2 % (0-14.5)
[2017-11-24 19:14] LABS: ACT PARTIAL THROMBO TIME 26.1 SECONDS (20.8-31.5); INTERNATIONAL NORM RATIO 1.2 (2.0-3.5)
[2017-11-24 19:26] LABS: ATYPICAL LYMPHS 1 % (0-0); PLATELET SUFFICIENCY HIGH (NORMAL); TOTAL CELLS COUNTED 100 #CELLS
[2017-11-24 19:27] LABS: MICROCYTOSIS SLIGHT
[2017-11-24 19:28] LABS: TOXIC GRANULATION SLIGHT
[2017-11-24 19:29] LABS: ALBUMIN 1.7 gm/dl (3.1-4.5); ALKALINE PHOSPHATASE 140 U/L (45-117); BUN 7 mg/dl (7-24); CHLORIDE 87 mmol/L (98-107); CREATININE 0.42 mg/dL (0.55-1.02); POTASSIUM 3.1 mmol/L (3.5-5.1); SGOT/AST 20 IU/L (3-35); SODIUM 125 mmol/L (136-145); TOTAL PROTEIN 4.9 gm/dL (6.4-8.2)
[2017-11-24 19:30] LABS: SGPT/ALT < 6 U/L (12-78)
[2017-11-24 19:32] LABS: TROPONIN I 0.151 ng/ml (<0.045)
[2017-11-24 19:46] LABS: BILIRUBIN NEGATIVE (NEGATIVE); BLOOD NEGATIVE (NEGATIVE); CLARITY CLEAR (CLEAR); COLOR YELLOW (YELLOW); GLUCOSE TRACE (NEGATIVE); KETONE NEGATIVE (NEGATIVE); LEUKO ESTERASE NEGATIVE (NEGATIVE); NITRITE NEGATIVE (NEGATIVE); PH 6.5 (5.0-9.0)
[2017-11-24 19:56] LABS: URINE AMPHETAMINES < 1000 (1000ng/ml); URINE BARBITURATES < 200 (200ng/ml); URINE BENZODIAZEPINES > 200 (200ng/ml); URINE CANNABINOIDS (THC) < 50 (50ng/ml); URINE COCAINE < 300 (300ng/ml); URINE METHADONE < 300 (300ng/ml); URINE OPIATES < 300 (300ng/ml)
[2017-11-24 19:57] LABS: BACTERIA TRACE; HYALINE CAST 0-2
[2017-11-24 19:58] LABS: URINE PHENCYCLIDINE < 25 (25ng/ml)
== END 2017-11-24 19:29 | disposition short-term general hospital (02) ==
LOC: ED 18:05
PROVIDERS: Student in an Organized Health Care Education/Training Program
DX: G40.901 Epilepsy, unspecified, not intractable, with status epilepticus (principal); C81.00 Nodular lymphocyte predominant Hodgkin lymphoma, unspecified site; I48.91 Unspecified atrial fibrillation; E78.5 Hyperlipidemia, unspecified; F17.200 Nicotine dependence, unspecified, uncomplicated; I25.10 Atherosclerotic heart disease of native coronary artery without angina pectoris; G89.29 Other chronic pain; M54.5 Low back pain; I25.2 Old myocardial infarction; F32.9 Major depressive disorder, single episode, unspecified; G43.909 Migraine, unspecified, not intractable, without status migrainosus; Z79.82 Long term (current) use of aspirin; Z79.899 Other long term (current) drug therapy; Z88.6 Allergy status to analgesic agent; Z88.5 Allergy status to narcotic agent; Z95.5 Presence of coronary angioplasty implant and graft; Z98.890 Other specified postprocedural states; Z88.8 Allergy status to other drugs, medicaments and biological substances

== ENCOUNTER → 2018-01-10 | Outpatient (CLI) | payer MEDICARE, OTHER ==
--- NOTE | ~2018-01-10 | HM ---
[place], [place] HOLTER MONITOR REPORT NAME: [facility]ENTES [id number] UNIT #: [id number] ROOM: DOCTOR: NORM CHANEL MD BIRTHDATE: [birth year] DOS: 01/16/2018 A 48-HOUR HOLTER MONITOR REPORT The study was done from January 10 to January. The recording was analyzed on January 16, interpreted on January 16 and dictated on 01/16/2018. INDICATIONS: Paroxysmal atrial fibrillation. FINDINGS: The patient was monitored utilizing a Holter device for 48 hours. The basic rhythm appeared to be coarse atrial fibrillation or atrial flutter and was present throughout the recording. Average heart rate was 67, heart rate varied from a minimal rate of 38 to a maximal rate of 101. Five wide complex runs were recorded. These were irregular and may represent aberrant conduction rather than nonsustained ventricular tachycardia. The longest pause was 1.9 seconds. No diary information was submitted. IMPRESSION: Atrial fibrillation or flutter with controlled ventricular response. Short runs of wide complex tachycardia were recorded and may represent aberrant conduction of atrial fibrillation. NORM CHANEL MD CM:HOLTER:HOLTER MONITOR REPORT 1726 NORM CHANEL MD
== END | disposition home or self-care (01) ==
LOC: CARD 13:00
DX: I25.10 Atherosclerotic heart disease of native coronary artery without angina pectoris (principal); I48.0 Paroxysmal atrial fibrillation; I49.5 Sick sinus syndrome

== ENCOUNTER 2019-04-04 15:38 | Inpatient (IN) | payer MEDICARE, OTHER ==
[~2019-04-04] VITALS: Ht 154.9 cm; Wt 58.3 kg
--- NOTE | ~2019-04-04 | PR ---
[place], [place] PROGRESS NOTE NAME: ISAIAH FUENTES [facility] #: [id number] UNIT #: [id number] ROOM: [facility] DOCTOR: MERCEDES MONACO MD BIRTHDATE: [birth year] DOS: 04/06/2019 REASON FOR VISIT: NSTEMI and atrial fibrillation with slow ventricular rate. SUBJECTIVE: The patient states she is feeling better overall and that she became short of breath with pulmonary edema, responded to IV diuretics. Denies any chest pain, mild shortness of breath. No PND, no orthopnea. No nausea or vomiting. No dizziness. No fever and chills. No cough or hemoptysis. REVIEW OF SYSTEMS: Review of 10 systems negative except as mentioned above. PHYSICAL EXAMINATION: VITAL SIGNS: Blood pressure 130/90, pulse 88, respiratory rate 20, weight 58 kilos. RHYTHM STRIPS: The patient in atrial fibrillation. GENERAL: Alert, comfortable, in no acute distress. NECK: Supple, no distended neck veins, no carotid bruit. CHEST: Symmetrical, nontender. LUNGS: Good air entry bilaterally. HEART: Irregularly irregular, grade 1/6 systolic murmur. ABDOMEN: Nontender. Bowel sounds normal. EXTREMITIES: Showed no edema. Distal pulses palpable. SKIN: Warm and dry. No cyanosis, no clubbing. RECTAL: Deferred. GENITOURINARY: Deferred. NEUROLOGIC: The patient is alert with no focal neurologic deficit. PSYCHIATRIC: The patient is alert with good mood and affect. MEDICATIONS AND LABS: Reviewed. IMPRESSION: 1. Non-ST elevation myocardial infarction. 2. Atrial fibrillation with intermittent slow ventricular rates. 3. Coronary artery disease, status post right coronary artery stent, status post LAD stent, recent stent to the LAD in 12/2018. 4. Ischemic cardiomyopathy, EF of 15% in 12/2018, the patient declined LifeVest since she is unable to wear it. 5. Tobacco use. RECOMMENDATIONS: 1. Continue current medications. 2. She is scheduled for a cardiac catheterization tomorrow at [place], [place]. Based on cardiac catheterization, she may need an EP consult for a pacemaker insertion due to her underlying symptomatic bradycardia and initiation of beta nimco therapy or ICD implant due to her severe LV dysfunction. The patient currently is in critical condition but she does not want to quit. Above recommendation discussed with the patient and her sister at bedside and [place], [place] PROGRESS NOTE NAME: ISAIAH FUENTES UNIT #: [id number] ROOM: [facility] DOCTOR: CARLOS ENRIQUE ENAMORADO,MERCEDES BIRTHDATE: [birth year] all questions were answered. MERCEDES MONACO MD CM:PNTRANS 1425 0042 MERCEDES MONACO MD 04/07/19 0043 interface
--- NOTE | ~2019-04-04 | EKG ---
[place], [place] ELECTROCARDIOGRAM REPORT NAME: ISAIAH FUENTES UNIT #: [id number] ROOM: [facility] DOCTOR: HEBERT DRAFT REPORT BIRTHDATE: [birth year] [facility] Test Date: 2019-04-04 Test Time: 21:00:41 Pat Name: ISAIAH FUENTES Department: Room: [facility] Gender: F Plant Associate: SEAN : 1945 Requested By: SONU WEINER Order Number: [id number] Reading MD: Cora Yeh Measurements Intervals [place] Rate: 66 P: ND: QRS: 105 QRSD: 110 T: 43 QT: 494 QTc: 518 Interpretive Statements Atrial fibrillation Anterior infarct, age indeterminate Prolonged QT interval Baseline wander in lead(s) V5 Compared to ECG 12/30/2018 17:44:03 Prolonged QT interval now present Intraventricular conduction delay no longer present Myocardial infarct finding still present Electronically Signed On 04-05-2019 12:32:08 PDT by Cora Yeh CM:EKGRPT:ELECTROCARDIOGRAM REPORT 2100 1232 SONU AMBROSIO DRAFT REPORT SONU WEINER MD
--- NOTE | ~2019-04-04 | EKG ---
[place], [place] ELECTROCARDIOGRAM REPORT NAME: ISAIAH FUENTES UNIT #: [id number] ROOM: [facility] DOCTOR: HEBERT DRAFT REPORT BIRTHDATE: [birth year] [facility] Test Date: 2019-04-04 Test Time: 15:45:21 Pat Name: ISAIAH FUENTES Department: Room: [facility] Gender: F Environmental Communications Specialist: : 1945 Requested By: SONU WEINER Order Number: [id number] Reading MD: Cora Yeh Measurements Intervals [place] Rate: 79 P: NM: QRS: 108 QRSD: 114 T: -44 QT: 419 QTc: 481 Interpretive Statements Atrial fibrillation Anterior infarct, age indeterminate Compared to ECG 12/30/2018 17:44:03 Intraventricular conduction delay no longer present Myocardial infarct finding still present Electronically Signed On 04-05-2019 12:29:41 PDT by Cora Yeh CM:EKGRPT:ELECTROCARDIOGRAM REPORT 1545 1229 SONU AMBROSIO DRAFT REPORT SONU WEINER MD
--- NOTE | ~2019-04-04 | EKG ---
[place], [place] ELECTROCARDIOGRAM REPORT NAME: ISAIAH FUENTES UNIT #: [id number] ROOM: [facility] DOCTOR: HEBERT DRAFT REPORT BIRTHDATE: [birth year] [facility] Test Date: 2019-04-04 Test Time: 18:44:46 Pat Name: ISAIAH FUENTES Department: Room: [facility] Gender: F Digital Marketing Apprentice: : 1945 Requested By: SONU WEINER Order Number: [id number] Reading MD: Cora Yeh Measurements Intervals [place] Rate: 57 P: [place]: QRS: 103 QRSD: 118 T: 81 QT: 558 QTc: 544 Interpretive Statements Atrial fibrillation Nonspecific intraventricular conduction delay Abnormal inferior Q waves Anterolateral infarct, age indeterminate Compared to ECG 12/30/2018 17:44:03 Inferior Q waves now present Q waves now present Myocardial infarct finding still present Electronically Signed On 04-05-2019 12:31:19 PDT by Cora Yeh CM:EKGRPT:ELECTROCARDIOGRAM REPORT 1844 1231 SONU AMBROSIO DRAFT REPORT SONU WEINER MD
--- NOTE | ~2019-04-04 | EKG ---
[place], [place] ELECTROCARDIOGRAM REPORT NAME: ISAIAH FUENTES UNIT #: [id number] ROOM: [facility] DOCTOR: HEBERT DRAFT REPORT BIRTHDATE: [birth year] [facility] Test Date: 2019-04-06 Test Time: 08:14:30 Pat Name: ISAIAH FUENTES Department: Room: [place] [address] Gender: F Sales Promotion Coordinator: : 1945 Requested By: DANETTE CALDERON Order Number: [id number] Reading MD: Cora Yeh Measurements Intervals [place] Rate: 77 P: [place]: QRS: 110 QRSD: 109 T: -74 QT: 394 QTc: 446 Interpretive Statements Atrial fibrillation Anterolateral infarct, age indeterminate Compared to ECG 04/04/2019 21:00:41 Prolonged QT interval no longer present Myocardial infarct finding still present Electronically Signed On 04-06-2019 9:12:15 PDT by Cora Yeh CM:EKGRPT:ELECTROCARDIOGRAM REPORT 3 1 DANETTE AMBROSIO DRAFT REPORT DANETTE CALDERON
--- NOTE | ~2019-04-04 | CON ---
[place], [place] REPORT OF CONSULTATION NAME: ISAIAH FUENTES [facility] #: [id number] UNIT #: [id number] ROOM: [facility] DOCTOR: CARLOS ENRIQUE ENAMORADO,MERCEDES BIRTHDATE: [birth year] DOS: 04/05/2019 REASON FOR CONSULTATION: Bradycardia and elevated troponin. HISTORY OF PRESENT ILLNESS: The patient is a 74-year-old patient with history of coronary artery disease, previous cardiac stent, chronic atrial fibrillation, cardiomyopathy, was presented to the Emergency Room for shortness of breath, which is progressive. For the past 3-4 days, the patient is having shortness of breath with exertion. Few days ago, she woke up at night, unable to breathe and drenched in sweats. On the day of presentation to the Emergency Room, she became nauseous with some epigastric pain as well as some mid back pain. She was admitted to the hospital and Cardiology was consulted for her bradycardia and also elevated troponins. She had a LAD stent in 12/2018 with EF of 25% and the patient unable to wear LifeVest. At the time of examination, the patient is comfortable. Denies any chest pain. She is slightly short of breath. No PND, no orthopnea. No nausea, vomiting or diarrhea. No abdominal pain. No fever and chills. No cough or hemoptysis. The patient denies any exertional chest pain at home. REVIEW OF SYSTEMS: Review of 10 systems negative except as mentioned above. PAST MEDICAL HISTORY: 1. Coronary artery disease, status post multiple stents, last stent was in 12/2018 to the LAD. 2. Ischemic cardiomyopathy, EF of 15% in 12/2018. 3. Chronic atrial fibrillation. 4. Hypertension. 5. Chronic obstructive pulmonary disease. 6. History of Hodgkin's lymphoma. 7. History of colon cancer. 8. Dyslipidemia. 9. Depression. 10. History of seizure disorder. PAST SURGICAL HISTORY: History of coronary stents, history of bladder repair, history of . SOCIAL HISTORY: The patient does smoke about 4 cigarettes a day, does not use illicit drugs, does not drink. FAMILY HISTORY: Nil contributory due to her age. HOME MEDICATIONS: Reviewed. ALLERGIES: THE PATIENT IS ALLERGIC TO ACETAMINOPHEN, OXYCODONE AND QUESTIONABLE METOPROLOL. HOME MEDICATIONS: Reviewed. PHYSICAL EXAMINATION: [place], [place] REPORT OF CONSULTATION NAME: ISAIAH FUENTES UNIT #: [id number] ROOM: [facility]- DOCTOR: MERCEDES MONACO MD BIRTHDATE: [birth year] VITAL SIGNS: Blood pressure 116/68, pulse 44, respirations 20. Weight 58.2 kilos. GENERAL: Alert, comfortable, in no acute distress. NECK: Supple, no distended neck veins, no carotid bruit. CHEST: Symmetrical, nontender. LUNGS: A few scattered rhonchi. HEART: Irregularly irregular, grade 1/6 systolic murmur. ABDOMEN: Benign, nontender. Bowel sounds normal. EXTREMITIES: Showed no edema. Distal pulses palpable. SKIN: Warm and dry. No cyanosis, no clubbing. RECTAL: Deferred. GENITOURINARY: Deferred. NEUROLOGIC: The patient is alert, with no focal neurologic deficit. MUSCULOSKELETAL: No joint tenderness. PSYCHIATRIC: The patient is alert with good mood and affect. REVIEW OF THE DIAGNOSTIC TESTS: EKG and labs reviewed. EKG showed atrial fibrillation with anterior infarction. CBC, chemistry reviewed. Potassium is 3.3, creatinine 0.64. Cardiac troponins are 4.6, 4.3, 3.9. BNP is 31,590. IMPRESSION: 1. Non-ST elevation myocardial infarction. 2. Atrial fibrillation with bradycardia. 3. Chronic systolic heart failure. 4. Ischemic cardiomyopathy, EF of 15%. 5. Chronic atrial fibrillation. 4. Coronary artery disease, status post stent to the RCA, stent to the LAD in 12/2018. 5. History of Hodgkin's lymphoma. 6. Hypertension. 7. Tobacco use. RECOMMENDATIONS: 1. Continue her aspirin, Plavix, Imdur, and Aldactone. 2. Entresto was on hold due to her low blood pressure. 3. Hold Eliquis and start heparin 24 hours. 4. I would recommend cardiac catheterization due to her NSTEMI and multiple stents. 5. We need to reassess her LV function. If the ejection fractions are 35 or less, probably she will need EP referral for ICD implant. 6. If the ejection fractions are greater than 35%, probably she will benefit from permanent pacemaker and then beta nimco therapy. Risks versus benefits of cardiac catheterization discussed and all questions answered. 7. The patient is agreeable to go for cardiac catheterization, angioplasty stent if needed. 8. No family at bedside. 9. The patient counseled to quit smoking, but the patient does not want to quit smoking. [place], [place] REPORT OF CONSULTATION NAME: ISAIAH FUENTES UNIT #: [id number] ROOM: [facility] DOCTOR: MERCEDES MONACO MD BIRTHDATE: [birth year] MERCEDES MONACO MD CM:CONSTR:REPORT OF CONSULTATION 0638 04/07/19 0257 interface
[2019-04-04 15:50] VITALS: BP 133/74
[2019-04-04 16:04] LABS: BASO # 0.1 10*3/uL (0.0-0.1); BASO % 0.5 % (0.0-1.0); EOS % 0.1 % (1.0-4.0); HEMATOCRIT 45.5 % (37.0-47.0); HEMOGLOBIN 14.8 g/dl (12.0-16.0); LYMPH # 3.2 10*3/uL (1.3-4.4); LYMPH % 30.9 % (27.0-41.0); MEAN CELL VOLUME 97.6 fl (81.0-99.0); MEAN CORPUSCULAR HGB 31.8 pg (27.0-31.0); MEAN CORPUSCULAR HGB CONC 32.5 g/dl (33.0-37.0); MEAN PLATELET VOLUME 11.3 fl (9.6-12.3); MONO # 0.8 10*3/uL (0.1-1.0); MONO % 7.3 % (3.0-9.0); NEUT # 6.3 10*3/uL (2.3-7.9); NEUT % 60.9 % (47.0-73.0); PLATELET COUNT AUTOMATED 224 10*3/uL (130-400); RED BLOOD COUNT 4.66 10*6/uL (4.10-5.10); RED CELL DISTRI WIDTH 14.6 % (0-14.5); WHITE BLOOD COUNT 10.3 10*3/uL (4.8-10.8)
[2019-04-04 16:15] LABS: ACT PARTIAL THROMBO TIME 27.3 SECONDS (20.0-32.1); INTERNATIONAL NORM RATIO 1.1 (2.0-3.5)
[2019-04-04 16:21] LABS: ALBUMIN 3.5 gm/dl (3.1-4.5); ALKALINE PHOSPHATASE 96 U/L (45-117); BUN 5 mg/dl (7-24); CHLORIDE 104 mmol/L (98-107); POTASSIUM 3.5 mmol/L (3.5-5.1); SGOT/AST 46 IU/L (3-35); SGPT/ALT 34 U/L (12-78); SODIUM 137 mmol/L (136-145); TOTAL PROTEIN 7.5 gm/dL (6.4-8.2)
--- NOTE | 2019-04-04 16:28 | NUR ---
RUSSELL BAILEY AWARE OF CRITICAL TROPONIN OF 4.6.
[2019-04-04 16:48] VITALS: BP 122/74
[2019-04-04 17:07] VITALS: BP 124/71
--- NOTE | 2019-04-04 17:30 | NUR ---
A 74yr old female, admitted to [facility], under the services of MITCH Tamayo DO with a diagnosis of Symptomatic bradycardia,elevated Troponin, dyspnea, atypical chest pain. Chief complaint is increased Shortness of Breath past several days. Patient arrived via stretcher from ER. Monitor applied. Initial assessment completed. Vital signs taken and recorded. See assessment for past medical history, medications and allergies. Patient and/or family oriented to unit. [facility] visitation policy reviewed. Clothing/patient valuable form completed. HUGO YEBOAH L
[2019-04-04] MEDS ORDERED: ELIQUIS5 M1 PO (17:58)
[2019-04-04] MEDS ORDERED: IMDUR SA30 MG PO (18:00)
[2019-04-04] MEDS ORDERED: KEPPRA1000 MG PO (18:00)
[2019-04-04] MEDS ORDERED: ALDACTONE25 M1 PO (18:01)
[2019-04-04] MEDS ORDERED: PLAVIX75 M1 PO (18:01)
[2019-04-04] MEDS ORDERED: ENTRESTO 24 MG1 EACH PO (18:02)
[2019-04-04 20:00] VITALS: BP 127/65
--- NOTE | 2019-04-04 22:33 | NUR ---
DOZING AT PRESENT TIME. NO COMPLAINTS OFFERED.
[2019-04-05] VITALS: BP 103/55
[2019-04-05 04:00] VITALS: BP 102/56
--- NOTE | 2019-04-05 06:09 | NUR ---
PT LAYING ON HER RT SIDE WITH EYES CLOSED, RESPIRATIONS EVEN AND UNLABORED. AFIB WITH SLOW VENTRICULAR RESPONSE IN THE LOW 40'S.
[2019-04-05 06:13] LABS: BASO # 0.1 10*3/uL (0.0-0.1); BASO % 0.9 % (0.0-1.0); EOS # 0.1 10*3/uL (0.0-0.4); EOS % 0.8 % (1.0-4.0); HEMATOCRIT 38.8 % (37.0-47.0); HEMOGLOBIN 12.5 g/dl (12.0-16.0); LYMPH % 40.6 % (27.0-41.0); MEAN CELL VOLUME 99.5 fl (81.0-99.0); MEAN CORPUSCULAR HGB 32.1 pg (27.0-31.0); MEAN CORPUSCULAR HGB CONC 32.2 g/dl (33.0-37.0); MEAN PLATELET VOLUME 11.6 fl (9.6-12.3); MONO # 0.6 10*3/uL (0.1-1.0); MONO % 7.6 % (3.0-9.0); NEUT # 3.7 10*3/uL (2.3-7.9); PLATELET COUNT AUTOMATED 190 10*3/uL (130-400); RED CELL DISTRI WIDTH 14.6 % (0-14.5); WHITE BLOOD COUNT 7.5 10*3/uL (4.8-10.8)
[2019-04-05 06:27] LABS: ALBUMIN 2.7 gm/dl (3.1-4.5); ALKALINE PHOSPHATASE 77 U/L (45-117); BUN 9 mg/dl (7-24); CHLORIDE 105 mmol/L (98-107); CHOLESTEROL 120 mg/dL (<200); CREATININE 0.64 mg/dL (0.55-1.02); HDL CHOLESTEROL 28 mg/dl (40-60); LDL CHOLESTEROL 72 mg/dL (9-159); POTASSIUM 3.3 mmol/L (3.5-5.1); SGOT/AST 30 IU/L (3-35); SGPT/ALT 24 U/L (12-78); SODIUM 141 mmol/L (136-145); TOTAL PROTEIN 5.7 gm/dL (6.4-8.2); TRIGLYCERIDES 102 mg/dl (<150); VLDL CHOLESTEROL 20 mg/dL (6-40)
[2019-04-05 06:36] LABS: INTERNATIONAL NORM RATIO 1.2 (2.0-3.5)
[2019-04-05 08:00] VITALS: BP 90/42
--- NOTE | 2019-04-05 08:00 | NUR ---
DR BELL IN TO SEE PT.
--- NOTE | 2019-04-05 08:20 | NUR ---
PT AAOX3. RESP EASY. PT REMAINS AFIB WITH HR 40-50'S. MANUAL BP 90/42. DR RODRIGUEZ AWARE. PT DENIES C/O. PT SET UP FOR BREAKFAST. WILL CONTINUE TO MONITOR PT.
--- NOTE | 2019-04-05 10:00 | NUR ---
BP 114/61. IMDUR GIVEN PER ROUTINE ORDER.
--- NOTE | 2019-04-05 11:28 | NUR ---
PT'S SISTER IN TO VISIT WITH PT.
[2019-04-05 12:00] VITALS: BP 116/68
--- NOTE | 2019-04-05 14:32 | NUR ---
DR MONACO IN TO SEE PT.
[2019-04-05 16:00] VITALS: BP 108/81
--- NOTE | 2019-04-05 16:13 | NUR ---
PT RESTING. RESP EASY. NO ACUTE DISTRESS NOTED.
--- NOTE | 2019-04-05 18:24 | NUR ---
PT REFUSED A BATH AT THIS TIME. SHE STATED SHE WILL TAKE ONE TOMORROW.
[2019-04-05 20:00] VITALS: BP 102/58
--- NOTE | 2019-04-05 20:21 | NUR ---
1930 RESTING IN BED TALKING WITH VISITOR. ALERT AND PLEASANT. DENIES C/O'S CHEST PAIN OR DISCOMFORT AT THIS TIME. PULSE OX 95% ON RA. NO DISTRESS NOTED. HEP LOCK INTACT.
[2019-04-06] VITALS: BP 111/63
--- NOTE | 2019-04-06 00:15 | NUR ---
RESTING IN BED WITH EYES CLOSED. APPEARS TO BE SLEEPING.
[2019-04-06 04:00] VITALS: BP 127/70
[2019-04-06 05:46] LABS: BASO # 0.1 10*3/uL (0.0-0.1); BASO % 0.9 % (0.0-1.0); EOS # 0.1 10*3/uL (0.0-0.4); EOS % 0.6 % (1.0-4.0); HEMATOCRIT 40.1 % (37.0-47.0); LYMPH # 2.5 10*3/uL (1.3-4.4); LYMPH % 31.9 % (27.0-41.0); MEAN CORPUSCULAR HGB 31.8 pg (27.0-31.0); MEAN CORPUSCULAR HGB CONC 32.4 g/dl (33.0-37.0); MEAN PLATELET VOLUME 11.8 fl (9.6-12.3); MONO # 0.5 10*3/uL (0.1-1.0); MONO % 6.4 % (3.0-9.0); NEUT # 4.7 10*3/uL (2.3-7.9); NEUT % 59.9 % (47.0-73.0); PLATELET COUNT AUTOMATED 192 10*3/uL (130-400); RED BLOOD COUNT 4.09 10*6/uL (4.10-5.10); RED CELL DISTRI WIDTH 14.5 % (0-14.5); WHITE BLOOD COUNT 7.9 10*3/uL (4.8-10.8)
[2019-04-06 05:51] LABS: BUN 17 mg/dl (7-24); CHLORIDE 104 mmol/L (98-107); CREATININE 0.61 mg/dL (0.55-1.02); POTASSIUM 4.1 mmol/L (3.5-5.1); SODIUM 139 mmol/L (136-145)
[2019-04-06 06:24] LABS: ACT PARTIAL THROMBO TIME 27.8 SECONDS (20.0-32.1); INTERNATIONAL NORM RATIO 1.1 (2.0-3.5)
--- NOTE | 2019-04-06 07:50 | NUR ---
PT AAOX3. RESP 27. RESP LABORED. POX 91%/ BP 130/90/ HR 88. PT C/O SOB AND SLIGHT NAUSEA. PB RALES NOTED BILAT ALONG WITH MOIST RESP. ABD. SOFT WITH ACTIVE BOWEL SOUNDS. NO PERIPHERAL EDEMA NOTED. DR RODRIGUEZ IN SEEING PT AND ORDERED LASIX 80MG IV X1. WILL CONTINUE TO MONITOR PT.
--- NOTE | 2019-04-06 07:51 | NUR ---
O2 2L NC APPLIED. POX 97%.
[2019-04-06 08:00] VITALS: BP 130/90
--- NOTE | 2019-04-06 08:10 | NUR ---
AM MEDS GIVEN WO PT ALONG WITH 80 LASIX IV. DID HAVE PT CHEW HER [address] CALDERON HERE AND UPDATED ON PT. TROP LEVEL AND EKG ORDERED.
--- NOTE | 2019-04-06 08:30 | NUR ---
DR BELL IN TO SEE PT. UPDATED HIM ON PT'S CONDITION. EKG SHOWN TO DOCTOR. NEW ORDERS RECEIVED FOR BIPAP AND CXR. PT UP TO BSC TO URINATE. PT STATES BREATHING "SLIGHTLY BETTER...BUT NOT MUCH."
--- NOTE | 2019-04-06 08:45 | NUR ---
UPDATED PT'S DAUGHTER,PB, ON PT'S CHANGE IN CONDITION.
--- NOTE | 2019-04-06 09:00 | NUR ---
Pt placed on BiPap 07/20 and FiO2 30%. No comps at this time. She agreed to try to wear it for a couple hours. SpO2 98%.
--- NOTE | 2019-04-06 09:02 | NUR ---
BIPAP APPLIED TO PT AFTER PT UP TO BSC FOR SECOND TIME TO URINATE. WILL CONTINUE TO MONITOR PT.
--- NOTE | 2019-04-06 09:22 | NUR ---
PAGED DR MONACO FOR UPDATE ON PT.
--- NOTE | 2019-04-06 09:25 | NUR ---
HR 65 / BP 125/70 / POX 98% ON 30% BIPAP. PT STATES SHE IS FEELING MUCH BETTER.
--- NOTE | 2019-04-06 11:10 | NUR ---
PT INCONT. LARGE AMOUNT OF URINE. BRIEF ALSO EXTREMELY SATURATED. PT BATHED AND LINENS CHANGED. PT STATES SHE IS FEELING "MUCH BETTER".
[2019-04-06 12:00] VITALS: BP 90/56
--- NOTE | 2019-04-06 12:13 | NUR ---
PT EATING LUNCH. PT DENIES C/O AT THIS TIME. VSS. WILL CONTINUE TO MONITOR PT.
[2019-04-06 16:00] VITALS: BP 112/48
--- NOTE | 2019-04-06 17:24 | NUR ---
PT'S DAUGHTER IN TO VISIT. UPDATED THEM ON PT'S CONDITION AND PLAN OF CARE.
[2019-04-06 20:00] VITALS: BP 97/47
--- NOTE | 2019-04-06 20:37 | NUR ---
1845 RESTING IN BED WITH HOB ELEVATED. CALL LIGHT IN REACH. TALKING WITH VISITORS. DENIES C/O'S CHEST PAIN OR DISCOMFORT. PULSE OX 98% ON RA. DIURESING FROM EARLIER IV LASIX. NO DISTRESS NOTED. PAPERS SIGNED FOR TRANSFER TO [facility] IN AM FOR HEART CATH. FAMILY AWARE OF TIME OF TRANSFER ETC. DR. RODRIGUEZ CALLED AND TOLD OF NEED FOR DISCHARGE ORDER.
[2019-04-06] MEDS ORDERED: LASIX40 MG PO (20:38)
--- NOTE | 2019-04-06 23:31 | NUR ---
PATIENT REFLUSED BIPAP, STATES SHE IS BREATHING FINE.
[2019-04-07] VITALS: BP 101/58
--- NOTE | 2019-04-07 00:15 | NUR ---
NPO FOR HEART CATH IN AM. RESTING IN BED WATCHING TV. COUGH NOTED. LUNG SOUNDS UNCHANGED FROM EARLIER. 02 APPLIED AT 2L VIA NC RELIEF OF COUGHING. WILL CONT TO MONITOR. DIURESED WELL FROM EARLIER IV LASIX.
[2019-04-07 04:00] VITALS: BP 114/60
[2019-04-07 05:30] LABS: BUN 20 mg/dl (7-24); CREATININE 0.66 mg/dL (0.55-1.02)
[2019-04-07 05:51] LABS: CHLORIDE 100 mmol/L (98-107); POTASSIUM 3.2 mmol/L (3.5-5.1); SODIUM 142 mmol/L (136-145)
--- NOTE | 2019-04-07 06:02 | NUR ---
DISCHARGED TO [facility] VIA [facility]. REPORT GIVEN. HEPARIN GTT CONT. NO SOB NOTED. NO C/O'S CHEST PAIN VOICED. CONDITION GUARDED.
== END 2019-04-07 06:02 | disposition other institution (70) | DRG 280 ==
LOC: ED 15:38 → EDHOLD 16:45 → ICCU 16:55
PROVIDERS: Emergency Medicine; Internal Medicine; Internal Medicine Cardiovascular Disease; Student in an Organized Health Care Education/Training Program; ADMIT Emergency Medicine
PROC: 5A09357 Assistance with Respiratory Ventilation, Less than 24 Consecutive Hours, Continuous Positive Airway Pressure (ICD-10-PCS; principal; 2019-04-06)
DX: I21.4 Non-ST elevation (NSTEMI) myocardial infarction (principal); J96.00 Acute respiratory failure, unspecified whether with hypoxia or hypercapnia; E87.2 Acidosis; I50.22 Chronic systolic (congestive) heart failure; R07.89 Other chest pain; R32 Unspecified urinary incontinence; I25.10 Atherosclerotic heart disease of native coronary artery without angina pectoris; I48.2 Chronic atrial fibrillation; G40.909 Epilepsy, unspecified, not intractable, without status epilepticus; E78.5 Hyperlipidemia, unspecified; F32.9 Major depressive disorder, single episode, unspecified; R00.1 Bradycardia, unspecified; I25.5 Ischemic cardiomyopathy; I11.0 Hypertensive heart disease with heart failure; J44.9 Chronic obstructive pulmonary disease, unspecified; E11.65 Type 2 diabetes mellitus with hyperglycemia; F17.210 Nicotine dependence, cigarettes, uncomplicated; Z71.6 Tobacco abuse counseling; Z95.5 Presence of coronary angioplasty implant and graft; Z85.72 Personal history of non-Hodgkin lymphomas; Z85.038 Personal history of other malignant neoplasm of large intestine; I25.2 Old myocardial infarction; Z82.49 Family history of ischemic heart disease and other diseases of the circulatory system; Z80.8 Family history of malignant neoplasm of other organs or systems; Z88.6 Allergy status to analgesic agent; Z88.8 Allergy status to other drugs, medicaments and biological substances; Z79.82 Long term (current) use of aspirin; Z79.899 Other long term (current) drug therapy; Z98.891 History of uterine scar from previous surgery; Z92.21 Personal history of antineoplastic chemotherapy; Z79.02 Long term (current) use of antithrombotics/antiplatelets; Z79.01 Long term (current) use of anticoagulants

== ENCOUNTER 2019-05-01 00:18 | Emergency (ER) | payer MEDICARE, OTHER ==
[~2019-05-01] VITALS: Ht 157.4 cm; Wt 47.6 kg
--- NOTE | ~2019-05-01 | EKG ---
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1945 Requested By: ARLIN DELGADO Order Number: [id number] Reading MD: Karen Benson MD Measurements Intervals [place] Rate: 110 P: ND: QRS: 103 QRSD: 125 T: -59 QT: 344 QTc: 466 Interpretive Statements Atrial fibrillation Ventricular premature complex Nonspecific intraventricular conduction delay Anterolateral infarct, acute Compared to ECG 04/06/2019 08:14:30 Ventricular premature complex(es) now present Intraventricular conduction delay now present Myocardial infarct finding still present Electronically Signed On 05-05-2019 17:53:48 PDT by Karen Benson MD CM:EKGRPT:ELECTROCARDIOGRAM REPORT 0024 [id number] ARLIN RAVI DRAFT REPORT ARLIN DELGADO DO
[~2019-05-01 00:18] MED LIST changes: +ALDACTONE25 M1 PO; +ELIQUIS5 M1 PO; +ENTRESTO 24 MG1 EACH PO; +IMDUR SA30 MG PO; +KEPPRA1000 MG PO; +LASIX40 MG PO; +PLAVIX75 M1 PO
[2019-05-01 00:50] LABS: BASO # 0.1 10*3/uL (0.0-0.1); BASO % 0.9 % (0.0-1.0); EOS # 0.1 10*3/uL (0.0-0.4); EOS % 0.5 % (1.0-4.0); HEMATOCRIT 49.6 % (37.0-47.0); HEMOGLOBIN 15.6 g/dl (12.0-16.0); LYMPH # 4.6 10*3/uL (1.3-4.4); LYMPH % 30.7 % (27.0-41.0); MEAN CELL VOLUME 102.7 fl (81.0-99.0); MEAN CORPUSCULAR HGB 32.3 pg (27.0-31.0); MEAN CORPUSCULAR HGB CONC 31.5 g/dl (33.0-37.0); MEAN PLATELET VOLUME 11.4 fl (9.6-12.3); MONO # 0.6 10*3/uL (0.1-1.0); MONO % 3.9 % (3.0-9.0); NEUT # 9.4 10*3/uL (2.3-7.9); NEUT % 62.7 % (47.0-73.0); PLATELET COUNT AUTOMATED 256 10*3/uL (130-400); RED BLOOD COUNT 4.83 10*6/uL (4.10-5.10); RED CELL DISTRI WIDTH 14.2 % (0-14.5)
[2019-05-01 00:59] LABS: ACT PARTIAL THROMBO TIME 34.8 SECONDS (20.0-32.1); INTERNATIONAL NORM RATIO 1.1 (2.0-3.5)
[2019-05-01 01:03] LABS: ALBUMIN 3.7 gm/dl (3.1-4.5); ALKALINE PHOSPHATASE 132 U/L (45-117); CHLORIDE 103 mmol/L (98-107); CREATININE 1.07 mg/dL (0.55-1.02); POTASSIUM 2.5 mmol/L (3.5-5.1); SGPT/ALT 16 U/L (12-78); SODIUM 136 mmol/L (136-145); TOTAL PROTEIN 8.5 gm/dL (6.4-8.2)
[2019-05-01 01:08] LABS: TROPONIN I 0.285 ng/ml (<0.045)
[2019-05-01 01:10] LABS: BUN 7 mg/dl (7-24); SGOT/AST 25 IU/L (3-35)
[2019-05-01 01:16] LABS: BILIRUBIN NEGATIVE (NEGATIVE); BLOOD 1+ (NEGATIVE); CLARITY CLOUDY (CLEAR); COLOR YELLOW (YELLOW); GLUCOSE 3+ (NEGATIVE); KETONE NEGATIVE (NEGATIVE); LEUKO ESTERASE 1+ (NEGATIVE); NITRITE POSITIVE (NEGATIVE); PH 5.5 (5.0-9.0); SPECIFIC GRAVITY >= 1.030 (1.005-1.030); UROBILINOGEN 0.2 E.U./dl (0.2-1.0)
[2019-05-01 01:21] LABS: BACTERIA 4+; MUCOUS TRACE; WBC TNTC wbc/hpf (0-5)
== END 2019-05-01 02:23 | disposition short-term general hospital (02) ==
LOC: ED 00:18
PROVIDERS: Emergency Medicine
DX: I21.9 Acute myocardial infarction, unspecified (principal); I48.91 Unspecified atrial fibrillation; J44.9 Chronic obstructive pulmonary disease, unspecified; E11.9 Type 2 diabetes mellitus without complications; I50.9 Heart failure, unspecified; I25.10 Atherosclerotic heart disease of native coronary artery without angina pectoris; F17.210 Nicotine dependence, cigarettes, uncomplicated; E78.5 Hyperlipidemia, unspecified; G40.909 Epilepsy, unspecified, not intractable, without status epilepticus; Z88.6 Allergy status to analgesic agent; Z79.899 Other long term (current) drug therapy; Z79.82 Long term (current) use of aspirin

== ENCOUNTER 2019-05-30 17:07 | Inpatient (IN) | payer MEDICARE, OTHER ==
[~2019-05-30] VITALS: Ht 154.9 cm; Wt 56.0 kg
--- NOTE | ~2019-05-30 | PR ---
[place], [place] PROGRESS NOTE NAME: ISAIAH FUENTES [facility] #: [id number] UNIT #: [id number] ROOM: 426 DOCTOR: MERCEDES MONACO MD BIRTHDATE: [birth year] DOS: 06/02/2019 REASON FOR VISIT: CHF and coronary artery disease, atrial fibrillation. SUBJECTIVE: The patient is feeling better. Denies any chest pain, shortness of breath. No PND. No orthopnea. No nausea or vomiting. No fever and chills. No dizziness. REVIEW OF SYSTEMS: Review of 10 systems negative except as mentioned above. OBJECTIVE: VITAL SIGNS: Blood pressure 122/59, pulse 58, respiratory rate is 20, weight 57 kilos. RHYTHM STRIPS: reviewed. GENERAL: The patient is alert, comfort, in no acute distress. HEENT: Pupils are round and equal. No jaundice. Tongue was moist. Pharynx clear. NECK: Supple. No distended neck veins. No carotid bruit. CHEST: Symmetrical, nontender. ICD site showed mild swelling with dressing near the left infraclavicular area. No active drainage. No signs of infection. LUNGS: A few scattered rhonchi. Good air entry bilaterally. HEART: Slightly irregular. Grade 1/6 systolic murmur. ABDOMEN: Benign, nontender. Bowel sounds normal. EXTREMITIES: Showed trace edema. Distal pulses palpable. SKIN: Warm and dry. No cyanosis. No clubbing. RECTAL: Deferred. GENITOURINARY: Deferred. NEUROLOGIC: The patient is alert with no focal neurologic deficit. PSYCHIATRIC: Alert with good mood and affect. LABORATORY DATA: Reviewed. Hemoglobin 11.4. Creatinine 0.7. MEDICATIONS: Reviewed. IMPRESSION: 1. Ischemic cardiomyopathy. 2. Acute on chronic systolic heart failure. 3. Coronary artery disease, status post multiple stents, recent stent was on 05/08/2019. 4. Status post ICD, single lead. 5. Paroxysmal atrial fibrillation. 6. Tobacco use. RECOMMENDATIONS: 1. Continue current medication. 2. Limited echo was still pending and the patient can be discharged home on current medications after 2D echo. 3. A 2D echo showed worsening of her LV function. Recommend ICD upgrade to Bi-V with either epicardial lead or His-bundle pacing. 4. No family at bedside at the time of examination. [place], [place] PROGRESS NOTE NAME: ISAIAH FUENTES UNIT #: [id number] ROOM: 426 DOCTOR: MERCEDES MONACO MD BIRTHDATE: [birth year] MERCEDES MONACO MD CM:PNIVETTE [phone] [id number] MERCEDES MONACO MD 06/02/192018 interface
--- NOTE | ~2019-05-30 | PR ---
[place], [place] PROGRESS NOTE NAME: ISAIAH FUENTES UNIT #: [id number] ROOM: 426 DOCTOR: CARLOS ENRIQUE ENAMORADO,MERCEDES BIRTHDATE: [birth year] DOS: 06/03/2019 CARDIOLOGY FOLLOWUP REASON FOR FOLLOWUP: Cardiomyopathy, atrial fibrillation, and coronary artery disease. HISTORY OF PRESENT ILLNESS: The patient is feeling better. Denies any chest pain, shortness of breath. She would like to go home. No PND, no orthopnea, no dizziness, no nausea or vomiting. REVIEW OF SYSTEMS: Review of 8 systems negative except as mentioned above. PHYSICAL EXAMINATION: VITAL SIGNS: Blood pressure 124/64, pulse 64, respiratory rate 18, weight 59.9 kilos. RHYTHM STRIPS: The patient was off the monitor. GENERAL: Alert, comfortable, in no acute distress. HEAD AND NECK: Neck supple. No distended neck veins, no carotid bruit. CHEST: Symmetrical, nontender. ICD site was unremarkable. At the left infraclavicular area, no active signs of infection. ABDOMEN: Benign, nontender. Bowel sounds normal. EXTREMITIES: Showed no edema. Distal pulses palpable. SKIN: Warm and dry. No cyanosis, no clubbing. RECTAL: Deferred. GENITOURINARY: Deferred. NEUROLOGIC: Alert with no focal neurologic deficit. DIAGNOSTIC TESTS: Review of the diagnostic test, medications, and labs reviewed. Echo showed EF 20-25%, at least moderate mitral regurgitation and moderate tricuspid regurgitation. IMPRESSION: 1. Acute on chronic systolic heart failure, ejection fraction slightly improved to 20-25% by echo. 2. Coronary artery disease, status post multiple stents, recent stent 05/08/2019. 3. Paroxysmal atrial fibrillation. 4. Status post ICD implant. 5. Tobacco use. RECOMMENDATIONS: 1. Continue current medications. 2. The patient can be discharged home today from the cardiac standpoint, especially to [facility] 3. No family at bedside at the time of my examination. 4. Continue her current cardiac medications include beta blockers, ARBs, spironolactone, and Lasix. 5. The patient counseled to quit smoking. [place], [place] PROGRESS NOTE NAME: ISAIAH FUENTES UNIT #: [id number] ROOM: 426 DOCTOR: MERCEDES MONACO MD BIRTHDATE: [birth year] MERCEDES MONACO MD CM:SELENE [id number] MERCEDES MONACO MD 06/20/19 0848 interface
--- NOTE | ~2019-05-30 | PR ---
[place], [place] PROGRESS NOTE NAME[id number] UNIT #: [id number] ROOM: 426 DOCTOR: KELSEY OKEEFE MD,HANS BIRTHDATE: [birth year] DOS: 06/01/2019 SUBJECTIVE: The patient continued to show improvement in respiratory symptom, reduction in symptoms of shortness of breath. Denies symptoms of coughing, chest pain or sputum expectoration. The limited echocardiogram completed on 06/02/2019 assessed by Cardiology Service, left ventricle ejection fraction was reported to 20-25% with that. PHYSICAL EXAMINATION: GENERAL: She was comfortably lying in the bed this morning of assessment. VITAL SIGNS: Normal temperature, respiratory 18, heart rate 64, blood pressure 125/64. The pulse oxygen saturation on room air 96-97% saturation. HEAD, EYES, EARS, NOSE, AND THROAT: Examination shows head was atraumatic. Eyes nonicterus. NECK: Supple. CARDIOVASCULAR SYSTEM: S1, S2 audible. LUNGS: Noted without any wheeze or crackles at the present time. ABDOMEN: Soft, nontender. Bowel sounds present. EXTREMITIES: No new change. LABORATORY DATA: Chest x-ray this morning was completed and noted marked improvement in the aeration of the lungs and resolution of the pleural fluids. IMPRESSION: Progressive resolution of the acute congestive heart failure noted severely reduced ejection fraction, which were noted partially improved. PLAN OF MANAGEMENT: Discharge planning per primary care physician. From the pulmonary standpoint, the patient could be discharged home today. HANS COLE MD CM:PNTRANS [phone] HANS OKEEFE MD 06/03/19 1400 interface
--- NOTE | ~2019-05-30 | EKG ---
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 : 1945 Requested By: KAYLEE PAT Order Number: [id number] Reading MD: Clyde Hernandez MD Measurements Intervals [place] Rate: 136 P: AR: QRS: 108 QRSD: 115 T: -64 QT: 342 QTc: 515 Interpretive Statements Afib/flut and V-paced complexes No further rhythm analysis attempted due to paced rhythm Nonspecific intraventricular conduction delay Lateral infarct, age indeterminate Probable anteroseptal infarct, recent Baseline wander in lead(s) V4 Compared to ECG 05/01/2019 00:24:35 Ventricular premature complex(es) no longer present Myocardial infarct finding still present Electronically Signed On 05-31-2019 14:43:33 PDT by Clyde Hernandez MD CM:EKGRPT:ELECTROCARDIOGRAM REPORT 1443 KAYLEE RAVI DRAFT REPORT KAYLEE PAT DO
--- NOTE | ~2019-05-30 | EKG ---
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 Probable anterolateral infarct, recent Abnormal T, consider ischemia, inferior leads Prolonged QT interval Compared to ECG 05/01/2019 00:24:35 T-wave abnormality now present Possible ischemia now present Electronically Signed On 05-31-2019 14:28:55 PDT by Clyde Hernandez MD CM:EKGRPT:ELECTROCARDIOGRAM REPORT [id number] 1428 ELBA RAVI DRAFT REPORT ELBA MORAN DO
--- NOTE | ~2019-05-30 | EKG ---
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
--- NOTE | ~2019-05-30 | CON ---
[place], [place] REPORT OF CONSULTATION NAME: ISAIAH FUENTES [facility] #: [id number] UNIT #: [id number] ROOM: 426 DOCTOR: HANS DOZIER MD BIRTHDATE: [birth year] DOS: 05/31/2019 PULMONARY CONSULTATION, EVALUATION AND MANAGEMENT CONSULTATION REQUESTED BY: Hospitalist service. REASON FOR CONSULTATION: For assessment of respiratory status, also with metabolic acidosis and others. HISTORY OF PRESENT ILLNESS: This is a 74-year-old white female patient who was admitted to the hospitalist service on 05/20/2019 and not known to me from the past. The patient has been admitted to the hospital under care of hospitalist service on date of 05/30/2019 for the symptoms reported the patient having progressive increased shortness of breath, which has been occurring with the rest for the past 3 days as per the patient. She was also complaining of nonproductive cough. She denies any pain or edema of the lower extremities. Denies any symptoms of wheezing. The patient denies symptoms of hemoptysis. She has been noted with mild hypotension as well as lactic acidosis and being treated in the hospital. The arterial blood gas was done for the patient was noted with evidence of metabolic acidosis and hypoxia. Chest x-ray was reported with finding of congestive heart failure and cardiomegaly. The patient has been known with severely reduced left ventricular ejection fraction previously as well. This afternoon, the patient was seen, she has been reporting reduction in symptoms of shortness of breath since admission. She was noted general weakness and fatigue partially decreased. She denies symptoms of chest pain or any acute hemoptysis at this time. REVIEW OF SYSTEMS: CONSTITUTIONAL SYMPTOMS: Fatigue and tiredness reported without any symptoms of fever or chills. EYES: Denies any burning, redness, or tenderness. EARS, NOSE, THROAT SYMPTOMS: No sore throat, hoarseness, otalgia, postnasal drainage or epistaxis. CARDIOVASCULAR: Denies angina pain, edema or pain of the lower extremities. GASTROINTESTINAL SYMPTOMS: Denies dysphagia, nausea, vomiting, diarrhea, abdominal pain, hematemesis, melena or hematochezia. GENITOURINARY SYMPTOMS: No dysuria, suprapubic pain or hematuria. MUSCULOSKELETAL: No acute joint pain, redness, or tenderness. CENTRAL NERVOUS SYSTEM: Denies dizziness, headache, diplopia or syncopal episodes. Remaining systems were reviewed, they were noted all negative. PAST MEDICAL HISTORY: 1. The patient was noted with history of severe coronary artery disease. 2. The patient with congestive heart failure with reduced ejection fraction as EF of 10-15%. 3. Recent non-ST segment elevation myocardial infarction as well secondary to occlusion of the stent for this patient. 4. Several cardiac catheterization and coronary artery stent insertion. [place], [place] REPORT OF CONSULTATION NAME: SIAIAH FUENTES UNIT #: [id number] ROOM: 426 DOCTOR: KELSEY OKEEFE MD,[facility] BIRTHDATE: [birth year] 5. History of ventricular tachycardia with a pacemaker in place. 6. History of abdominal non-Hodgkin lymphoma. 7. Permanent atrial fibrillation. 8. History of chronic obstructive pulmonary disease. 9. Nicotine abuse. 10. Peripheral arterial disease. SOCIAL HISTORY: The patient stated that she lives at home. Denies any history of alcohol use or any illicit drug use. She has been noted with tobacco use about a pack of cigarettes per day in the past, currently smoking only 2 cigarettes a day. FAMILY HISTORY: The patient was reported as father of cancer, unknown age. Mother of heart disease, unknown age. HOME MEDICATIONS: Listed as aspirin, Lasix, oxybutynin, Lipitor, Eliquis, Keppra, Imdur, spironolactone, Plavix and Entresto. CURRENT MEDICATIONS: Administered was noted as IV Lasix 20 mg p.o. daily, Lipitor, Eliquis, vitamin D, Plavix, Aldactone, Imdur, Keppra, aspirin, levalbuterol p.r.n. use, Solu-Medrol 60 mg b.i.d., Levaquin, vancomycin and IV Zosyn. DRUG ALLERGIES: Noted as ALLERGIES TO: 1. PERCOCET. 2. METOPROLOL. PHYSICAL EXAMINATION: GENERAL: This is a 74-year-old female who has been noted currently awake and alert without any distress this morning of assessment. Height of 5 feet 1 inch, weight 118 pounds, BMI 22. VITAL SIGNS: Normal temperature, respiratory rate was recorded 18-36, heart rate of 63-130 with atrial tachycardia, blood pressure 79/41 to 144/115 was recorded at some point of time. Pulse oxygen saturation on 4 liters nasal cannula 99% saturation on admission room air was 76% saturation. HEENT: Examination shows head was atraumatic. Eyes nonicterus. NECK: Supple. CARDIOVASCULAR: S1, S2 is audible. LUNGS: The patient noted diffuse reduction of breath sounds, crackles in the lungs. ABDOMEN: Flat, soft, nontender. EXTREMITIES: Without edema, clubbing or cyanosis. MUSCULOSKELETAL: Without acute deformities. CENTRAL NERVOUS SYSTEM: Noted intact. LABORATORY DATA: CBC of 05/30/2019 on admission, blood count is 11.7, hemoglobin and hematocrit were normal. Platelet count normal. The PT/PTT were noted normal. CMP that was done on 05/30/2019, glucose 260, BUN normal, creatinine was normal. Troponin minimally elevated at 0.238. Lactic acid 5.1 and then elevated at different levels, which has been done every 4 hours. CBC [place], [place] REPORT OF CONSULTATION NAME: ISAIAH FUENTES UNIT #: [id number] ROOM: 426 DOCTOR: KELSEY OKEEFE MD,[facility] BIRTHDATE: [birth year] that was done this morning, WBC count 12.1, hemoglobin and hematocrit normal, platelet count normal. BMP, normal BUN and creatinine, glucose 286 and CO2 was 18. One view chest x-ray noted with severe cardiomegaly, finding of pulmonary edema, congestive heart failure and pleural effusions. Arterial blood gas that was done on 02/21/2019, pH of 7.40, pCO2 of 35, pO2 of 113 with 7 liters nasal cannula. Arterial blood gas that was done earlier at midnight, pH of 7.26, pCO2 of 35, pO2 of 77.5 at 7 liters. IMPRESSION: 1. The patient who has been currently admitted to the hospital with severe global hypoperfusion with a reduced ejection fraction with acute congestive heart failure, pulmonary edema and severe acute metabolic acidosis, lactic acidosis and hypoxemia. 2. Acute hypoxic respiratory failure secondary to above as stated. 3. Chronic obstructive pulmonary disease without acute exacerbation. 4. Chronic low-grade nicotine abuse. There was no specific findings of any acute pneumonia. Ultrasound of the chest done shows moderate-sized pleural fluid in the right side at the bedside and small to moderate on the left side. 5. The patient with chronic low-grade nicotine abuse. 6. Metabolic acidosis ____ likely lactic acidosis already stated has a global hypoperfusion. Other medical illnesses the patient has stated ventricular tachycardia with a pacemaker in place and multiple other problems as noted remained stable. PLAN OF MANAGEMENT: Based on my assessment, I will discontinue Solu-Medrol as well as all the antibiotics. Maximize the medical management of congestive heart failure per recommendation of the Cardiology Services with a reduced ejection fraction. Prognosis of the patient is noted extremely guarded at the present time. Code status determination for the patient, no changes. Code status should be strongly considered after discussion with the family members. Diuretics to be continued as already ordered per Cardiology Services. The patient may benefit of using the BiPAP, she is willing to do so, the patient could be used to help improve the congestive heart failure as well on this hospitalization. Titrate oxygen supplementation to maintain pulse ox saturation 92% or greater. No other plan of management, care plan change to be made. The Eliquis will be continued for chronic permanent atrial fibrillation and anticoagulant. Supportive care. All the other usual medical management, care plan of treatment. Counseling about tobacco cessation was done. Pleural fluid would not require any thoracentesis at the present time and would be just managed conservatively with the medication, which were already noted as diuretics. Supportive care therapy, plan of management and care plan of treatment. Thanks for allowing me to participate in the care of this patient. [place], [place] REPORT OF CONSULTATION NAME: ISAIAH FUENTES UNIT #: [id number] ROOM: 426 DOCTOR: HANS DOZIER MD BIRTHDATE: [birth year] HANS COLE MD CM:CONSTR:REPORT OF CONSULTATION 1514 06/01/19 0153 interface
--- NOTE | ~2019-05-30 | PR ---
[place], [place] PROGRESS NOTE NAME: ISAIAH FUENTES UNIT #: [id number] ROOM: 426 DOCTOR: KELSEY OKEEFE MD,HANS BIRTHDATE: [birth year] DOS: 06/01/2019 PULMONARY PROGRESS NOTE SUBJECTIVE: She has been noted comfortable at this time, resting on the bed. Denies symptoms of fever or chills. Shortness of breath has been decreasing. There were no symptoms of chest pain. The patient was noted with [id number] nonproductive cough. Denies symptoms of hemoptysis. Denies symptoms of headache or diplopia. Denies any pain of the lower extremity edema. Transferred from the ICU to telemetry floor. Remaining systems reviewed, they were noted all negative. PHYSICAL EXAMINATION: VITAL SIGNS: Blood pressure 108/60-194/60, temperature normal, respiratory rate 16-20, heart rate 63-53. Pulse oxygen saturation recorded as 95% saturation at rest on room air. HEENT: Examination shows head was atraumatic. Eyes nonicterus. NECK: Supple. CARDIOVASCULAR SYSTEM: S1, S2 audible. LUNGS: Still noted decreased breaths in the lungs bilaterally. Scattered crackles with partial improvement from yesterday. ABDOMEN: Soft, flat, nontender. Bowel sounds present. EXTREMITIES: The patient was noted without any acute edema. MUSCULOSKELETAL: The patient was noted without any acute deformities. CENTRAL NERVOUS SYSTEM: The patient's cranial nerves II-XII intact. VISIBLE SKIN: Without any lesions or rashes. LABORATORY DATA: CBC today: WBC count 11.8, hemoglobin 11.1, platelet count were normal. The BMP this morning, normal BUN and creatinine, glucose 211, potassium 3.2. IMPRESSION: The patient with acute congestive heart failure, pulmonary edema, bilateral pleural fluids, severely reduced left ventricular ejection fraction. PLAN OF MANAGEMENT: Continue maximizing medical management for congestive heart failure with the Cardiology Service recommendations. Continue anticoagulants for the patient permanent atrial fibrillation, noted controlled range. Monitoring of the chest x-ray clinically and radiologically with the ultrasound as well. Other therapy, plan of management to be continued. The patient was advised and encouraged to use the BiPAP at nighttime that will also help improve the congestive heart failure. [place], [place] PROGRESS NOTE NAME: ISAIAH FUENTES UNIT #: [id number] ROOM: 426 DOCTOR: HANS DOZIER MD BIRTHDATE: [birth year] HANS COLE MD CM:SELENE [phone] HANS OKEEFE MD 06/02/19230 interface
--- NOTE | ~2019-05-30 | EKG ---
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 : 1945 Requested By: JASMIN MUHAMMAD Order Number: [id number] Reading MD: Clyde Hernandez MD Measurements Intervals [place] Rate: 109 P: [place]: QRS: 105 QRSD: 118 T: -69 QT: 380 QTc: 512 Interpretive Statements Afib/flut and V-paced complexes No further rhythm analysis attempted due to paced rhythm Nonspecific intraventricular conduction delay Low voltage, precordial leads Borderline repolarization abnormality Minimal ST elevation, lateral leads Compared to ECG 05/01/2019 00:24:35 Low QRS voltage now present ST (T wave) deviation now present Ventricular premature complex(es) no longer present Myocardial infarct finding no longer present Electronically Signed On 05-31-2019 14:43:41 PDT by Clyde Hernandez MD CM:EKGRPT:ELECTROCARDIOGRAM REPORT 0020 1443 JASMIN RAVI DRAFT REPORT JASMIN MUHAMMAD DO
--- NOTE | ~2019-05-30 | PR ---
[place], [place] PROGRESS NOTE NAME: [facility] FEUNTES [id number] UNIT #: [id number] ROOM: 426 DOCTOR: KELSEY OKEEFE MD,HANS BIRTHDATE: [birth year] DOS: 06/02/2019 PULMONARY PROGRESS NOTE SUBJECTIVE: The patient has been noted without any acute respiratory complaints at the present time. She remains in the hospital, diuresis was continued. Shortness of breath in general was improving. There were no symptoms of chest pain reported. There were no symptoms of cough. OBJECTIVE: VITAL SIGNS: Normal temperature, respiratory rate 20, heart rate 58, blood pressure 122/59. Pulse ox saturation on room air 100% saturation recorded. HEENT: Examination shows no new change. NECK: Supple. CARDIOVASCULAR: S1, S2 audible. LUNGS: The patient was noted without any wheezing or crackles. Decreased breath sounds noted in lower portion of the lungs bilaterally. ABDOMEN: Soft and nontender. Bowel sounds present. EXTREMITIES: No new change. LABORATORY DATA: CBC: WBC count 9.0, hemoglobin 11.4, platelet count were normal. BMP: BUN 25, creatinine normal, glucose 200. IMPRESSION: Resolving acute respiratory failure with congestive heart failure, severely decreased ejection fraction was also noted as well, bilateral pleural fluid, clinically improving. PLAN OF MANAGEMENT: No changes in medical management. Continue maximum management of heart failure per Cardiology Services. Discharge planning per primary care attending. HANS COLE MD CM:PNTRANS [id number] HANS OKEEFE MD 06/02/19 1351 interface
--- NOTE | ~2019-05-30 | EKG ---
[place], [place] ELECTROCARDIOGRAM REPORT NAME: ISAIAH FUENTES UNIT #: [id number] ROOM: 426 DOCTOR: HEBERT DRAFT REPORT BIRTHDATE: [birth year] [facility] Test Date: 2019-05-30 Test Time: 20:10:04 Pat Name: ISAIAH FUENTES Department: Room: 426 Gender: F [employer]: Vinicius Reed : 1945 Requested By: ELBA MORAN Order Number: [id number] Reading MD: Clyde Hernandez MD Measurements Intervals [place] Rate: 99 P: [place]: QRS: 106 QRSD: 141 T: -59 QT: 407 QTc: 523 Interpretive Statements Afib/flut and V-paced complexes No further analysis attempted due to paced rhythm Compared to ECG 05/01/2019 00:24:35 Ventricular premature complex(es) no longer present Intraventricular conduction delay no longer present Myocardial infarct finding no longer present Electronically Signed On 05-31-2019 14:29:03 PDT by Clyde Hernandez MD CM:EKGRPT:ELECTROCARDIOGRAM REPORT 09 142 ELBA RAVI DRAFT REPORT ELBA MORAN DO
[2019-05-30 17:07] VITALS: BP 137/83
[~2019-05-30 17:07] MED LIST changes: -OXYBUTYNIN CHLOR5 MG PO; +OXYBUTYNIN5 MG PO
--- NOTE | 2019-05-30 17:07 | NUR ---
V-PACED WITH RBBB.
[2019-05-30 17:53] LABS: BASO # 0.1 10*3/uL (0.0-0.1); BASO % 0.8 % (0.0-1.0); EOS # 0.1 10*3/uL (0.0-0.4); EOS % 0.6 % (1.0-4.0); HEMATOCRIT 48.7 % (37.0-47.0); HEMOGLOBIN 15.2 g/dl (12.0-16.0); LYMPH # 2.2 10*3/uL (1.3-4.4); LYMPH % 18.3 % (27.0-41.0); MEAN CORPUSCULAR HGB 32.1 pg (27.0-31.0); MEAN CORPUSCULAR HGB CONC 31.2 g/dl (33.0-37.0); MEAN PLATELET VOLUME 11.1 fl (9.6-12.3); MONO # 0.5 10*3/uL (0.1-1.0); MONO % 4.4 % (3.0-9.0); NEUT # 8.9 10*3/uL (2.3-7.9); NEUT % 75.6 % (47.0-73.0); PLATELET COUNT AUTOMATED 238 10*3/uL (130-400); RED BLOOD COUNT 4.73 10*6/uL (4.10-5.10); RED CELL DISTRI WIDTH 15.9 % (0-14.5); WHITE BLOOD COUNT 11.7 10*3/uL (4.8-10.8)
[2019-05-30 18:03] LABS: ACT PARTIAL THROMBO TIME 26.8 SECONDS (20.0-32.1); INTERNATIONAL NORM RATIO 1.1 (2.0-3.5)
--- NOTE | 2019-05-30 18:06 | NUR ---
DR MORAN IS AT THE BEDSIDE.
[2019-05-30 18:11] LABS: ALBUMIN 3.6 gm/dl (3.1-4.5); ALKALINE PHOSPHATASE 107 U/L (45-117); BUN 10 mg/dl (7-24); CHLORIDE 106 mmol/L (98-107); CREATININE 0.85 mg/dL (0.55-1.02); POTASSIUM 3.5 mmol/L (3.5-5.1); SGOT/AST 19 IU/L (3-35); SGPT/ALT 20 U/L (12-78); SODIUM 138 mmol/L (136-145); TOTAL PROTEIN 7.9 gm/dL (6.4-8.2)
[2019-05-30 18:14] VITALS: BP 144/74
[2019-05-30 18:20] LABS: TROPONIN I 0.238 ng/ml (<0.045)
--- NOTE | 2019-05-30 18:20 | NUR ---
CRITICAL LAB VALUE RECEIVED AT THIS TIME. DR ARENAS AND JULIET RN NOTIFIED.
--- NOTE | 2019-05-30 18:31 | NUR ---
notified dr cummins of lactic acid of 5.3.
--- NOTE | 2019-05-30 19:08 | NUR ---
REPORT TO BASILIO DORSEY.
[2019-05-30 19:30] VITALS: BP 112/82
--- NOTE | 2019-05-30 19:30 | NUR ---
A 74 YEAR OLD FEMALE PATIENT, admitted to 5E, under the services of MITCH Tamayo DO with a diagnosis of ELEVATED TROPONIN,SEPSIS,CHEST PAIN, PNEMONITIS. Chief complaint is SHORTNESS OF BREATH HEADACHE NONPRODUCTIVE COUGH Patient arrived via CART WITH RN from ER. Monitor applied. Initial assessment completed. Vital signs taken and recorded. See assessment for past medical history, medications and allergies. Patient and/or family oriented to unit. [facility] visitation policy reviewed. Clothing/patient valuable form completed. ADRIANA COLVIN
--- NOTE | 2019-05-30 20:45 | NUR ---
DR PAT NOTIFIED OF MULTIPLE CRITICAL LABS.
[2019-05-30] MEDS ORDERED: ALDACTONE25 MG PO (22:33)
[2019-05-30] MEDS ORDERED: FUROSEMIDE20 M1 PO (22:34)
--- NOTE | 2019-05-30 22:39 | NUR ---
DR COLE MADE AWARE OF CONSULT, NO NEW ORDERS, STATES WILL SEE IN THE AM
--- NOTE | 2019-05-30 23:30 | NUR ---
CONTACTED PATIENT'S DAUGHTER PB ([phone]) AND UPDATED ON PATIENT'S CONDITION AND TRANSFER TO ICU. DAUGHTER TO COME IN
--- NOTE | 2019-05-30 23:36 | NUR ---
PATIENT RECIEVED TO [facility] REPORT WAS RECIEVED FROM ADRIANA.
[2019-05-30 23:44] LABS: BASO # 0.1 10*3/uL (0.0-0.1); BASO % 0.5 % (0.0-1.0); HEMATOCRIT 46.9 % (37.0-47.0); HEMOGLOBIN 14.6 g/dl (12.0-16.0); LYMPH # 1.7 10*3/uL (1.3-4.4); LYMPH % 14.4 % (27.0-41.0); MEAN CELL VOLUME 103.3 fl (81.0-99.0); MEAN CORPUSCULAR HGB 32.2 pg (27.0-31.0); MEAN CORPUSCULAR HGB CONC 31.1 g/dl (33.0-37.0); MEAN PLATELET VOLUME 11.1 fl (9.6-12.3); MONO # 0.3 10*3/uL (0.1-1.0); MONO % 2.6 % (3.0-9.0); NEUT # 9.9 10*3/uL (2.3-7.9); NEUT % 82.1 % (47.0-73.0); PLATELET COUNT AUTOMATED 252 10*3/uL (130-400); RED BLOOD COUNT 4.54 10*6/uL (4.10-5.10); WHITE BLOOD COUNT 12.1 10*3/uL (4.8-10.8)
[2019-05-30 23:45] VITALS: BP 144/115
[2019-05-30 23:55] LABS: BUN 11 mg/dl (7-24); CHLORIDE 106 mmol/L (98-107); CREATININE 0.94 mg/dL (0.55-1.02); POTASSIUM 3.7 mmol/L (3.5-5.1); SODIUM 138 mmol/L (136-145)
[2019-05-31] VITALS (7 sets, daily range): BP systolic 79–108; BP diastolic 41–60
[2019-05-31 00:12] LABS: ABG BASE EXCESS -10.6 mmol/L (-2.0-2.0); ABG HCO3 15.5 mmol/l (22-26); ABG O2 SATURATION 92.7 % (95-97); ARTERIAL BLOOD GAS PCO2 35.2 mmHg (35-45); ARTERIAL BLOOD GAS PH 7.263 (7.35-7.45); ARTERIAL BLOOD GAS PO2 77.5 mmHg (80-90)
[2019-05-31 00:43] LABS: BILIRUBIN 1+ (NEGATIVE); BLOOD NEGATIVE (NEGATIVE); CLARITY SL CLOUDY (CLEAR); COLOR YELLOW (YELLOW); GLUCOSE 1+ (NEGATIVE); KETONE NEGATIVE (NEGATIVE); LEUKO ESTERASE NEGATIVE (NEGATIVE); NITRITE NEGATIVE (NEGATIVE); PH 5.5 (5.0-9.0); SPECIFIC GRAVITY >= 1.030 (1.005-1.030)
--- NOTE | 2019-05-31 00:45 | NUR ---
PLACED PATIENT ON BIPAP 16/10, 50% O2. SPO2 98, HR 98. WILL CONTINUE TO MONITOR
[2019-05-31 00:51] LABS: BACTERIA 1+
--- NOTE | 2019-05-31 02:13 | NUR ---
DOCTOR JB ON THE FLOOR MADE AWARE OF PATIENT CRITCAL LAB
[2019-05-31 05:55] LABS: ALKALINE PHOSPHATASE 88 U/L (45-117); BUN 14 mg/dl (7-24); CHLORIDE 104 mmol/L (98-107); CREATININE 1.04 mg/dL (0.55-1.02); PHOSPHOROUS 3.3 mg/dL (2.5-4.9); POTASSIUM 3.4 mmol/L (3.5-5.1); SGOT/AST 44 IU/L (3-35); SGPT/ALT 34 U/L (12-78); SODIUM 137 mmol/L (136-145); TOTAL PROTEIN 6.9 gm/dL (6.4-8.2)
[2019-05-31 06:01] LABS: THYROID STIM HORMONE (HS) 0.873 uIU/ml (0.358-4.75)
[2019-05-31 06:14] LABS: TROPONIN I 0.343 ng/ml (<0.045)
[2019-05-31 06:50] LABS: BASO % 0.1 % (0.0-1.0); HEMATOCRIT 42.1 % (37.0-47.0); HEMOGLOBIN 13.4 g/dl (12.0-16.0); LYMPH % 13.5 % (27.0-41.0); MEAN CELL VOLUME 100.7 fl (81.0-99.0); MEAN CORPUSCULAR HGB 32.1 pg (27.0-31.0); MEAN CORPUSCULAR HGB CONC 31.8 g/dl (33.0-37.0); MEAN PLATELET VOLUME 11.5 fl (9.6-12.3); MONO # 0.2 10*3/uL (0.1-1.0); MONO % 2.3 % (3.0-9.0); NEUT # 6.5 10*3/uL (2.3-7.9); NEUT % 83.8 % (47.0-73.0); PLATELET COUNT AUTOMATED 181 10*3/uL (130-400); RED BLOOD COUNT 4.18 10*6/uL (4.10-5.10); RED CELL DISTRI WIDTH 15.7 % (0-14.5); WHITE BLOOD COUNT 7.7 10*3/uL (4.8-10.8)
--- NOTE | 2019-05-31 07:00 | NUR ---
Shift chart check completed.24 HR chart check completed.
--- NOTE | 2019-05-31 07:06 | NUR ---
PT NOT ON BIPAP AT THIS TIME
[2019-05-31 07:19] LABS: ABG BASE EXCESS -1.5 mmol/L (-2.0-2.0); ABG HCO3 22.3 mmol/l (22-26); ABG O2 SATURATION 98.5 % (95-97); ARTERIAL BLOOD GAS PCO2 35.8 mmHg (35-45); ARTERIAL BLOOD GAS PH 7.408 (7.35-7.45)
--- NOTE | 2019-05-31 07:51 | NUR ---
ON ASSESSMENT PATIENT IS RESTING EASILY IN BED. NO VOICED COMPLAINTS OF PAIN OR SHORTNESS OF BREATH. ABG'S HAVE BEEN DONE BY RESP THERAPY AND HER OXYGEN HAS BEEN TITRATED FROM 7L HIGH FLOW NASAL CANNULA TO 4L STANDARD NASAL CANNULA. PT HAS PERSISTENT CRACKLES PB AND MID(R>L). NO COUGH. NO PERIPHERAL EDEMA. RECENT PACEMAKER SITE LSC IS AGED ECCHYMOTIS. QUINTEROS PATENT CLEAR YELLOW URINE. HEPARIN DRIP AT 12 UNITS/KG/MIN WITH THERAPEUTIC PTT THIS AM. SEE ALL APPROPRIATE INTERVENTIONS.
--- NOTE | 2019-05-31 09:28 | NUR ---
ATE WELL FOR BREAKFAST. IV LASIX 40MG PER ORDER DR RODRIGUEZ. DAUGHTER HAS ARRIVED.
--- NOTE | 2019-05-31 10:17 | NUR ---
DR BELL HAS VISITED. PT DOWNGRADED TO MONITORED PT. DAUGHTER REQUESTED TO BRING PT'S ENTRESTO MED IN FROM HOME.
--- NOTE | 2019-05-31 11:00 | NUR ---
ALFA ARCOS, PEOPLESOFT DEVELOPER NOTIFIED OF PT STEPPED DOWN TO TELEMETRY STATUS. COMPLETE BED BATH DONE. PT OUT OF BED TO CHAIR. TOLERATED WELL. OXYGEN HAS BEEN TITRATED OFF, DOES NOT USE AT HOME.
--- NOTE | 2019-05-31 11:03 | NUR ---
PT NOT ON BIPAP AT THIS TIME
--- NOTE | 2019-05-31 12:09 | NUR ---
DR RODRIGUEZ WAS NOTIFIED OF CRITICAL LACTIC ACID 4.[address] MENDEZ HERE TO SEE PATIENT NOW. AWARE OF TROPONINS, BP 90/50
--- NOTE | 2019-05-31 12:33 | NUR ---
DR MENDEZ SPOKE WITH DAUGHTER VIA PHONE.
--- NOTE | 2019-05-31 13:16 | NUR ---
BACK TO BED PER PT REQUEST. HEPARIN DRIP D/C PER ORDER.
--- NOTE | 2019-05-31 13:37 | NUR ---
DR COLE VISITS.
--- NOTE | 2019-05-31 13:59 | NUR ---
DR COLE AWARE OF LACTIC ACID 4.1.
--- NOTE | 2019-05-31 14:29 | NUR ---
TRANSFERRED VIA BED TO [facility] WITH HER BELONGINGS. ORIENTED TO ROOM. BED IN LOW POSITION WITH WHEELS LOCKED. CALL LIGHT IN REACH.
--- NOTE | 2019-05-31 14:45 | NUR ---
PATIENT TRANSFERRED TO UNIT FROM [facility], REPORT RECEIVED, SEE SHIFT ASSESSMENT FOR DETAILS.
[2019-05-31] MEDS ORDERED: DIOVAN80 M1 PO (16:24)
--- NOTE | 2019-05-31 19:00 | NUR ---
Patient refuses to wear BiPAP this evening. Patient SPO2 96% on Room Air and is in no distress.
[2019-06-01] VITALS (7 sets, daily range): BP systolic 88–108; BP diastolic 42–61
--- NOTE | 2019-06-01 03:02 | NUR ---
PATIENT RESTING WITH EYES CLOSED. RESPIRATIONS EASY AND UNLABORED ON ROOM AIR. BED LOCKED IN LOWEST POSITION, CALL LIGHT WITHIN REACH. WILL MONITOR.
[2019-06-01 07:51] LABS: HEMOGLOBIN 11.1 g/dl (12.0-16.0); MEAN CELL VOLUME 98.3 fl (81.0-99.0); MEAN CORPUSCULAR HGB 32.1 pg (27.0-31.0); MEAN CORPUSCULAR HGB CONC 32.6 g/dl (33.0-37.0); MEAN PLATELET VOLUME 11.5 fl (9.6-12.3); PLATELET COUNT AUTOMATED 158 10*3/uL (130-400); RED BLOOD COUNT 3.46 10*6/uL (4.10-5.10); RED CELL DISTRI WIDTH 15.8 % (0-14.5); WHITE BLOOD COUNT 11.8 10*3/uL (4.8-10.8)
[2019-06-01 08:09] LABS: BUN 23 mg/dl (7-24); CHLORIDE 104 mmol/L (98-107); POTASSIUM 3.2 mmol/L (3.5-5.1); SODIUM 138 mmol/L (136-145)
[2019-06-01 08:10] LABS: CREATININE 0.73 mg/dL (0.55-1.02)
[2019-06-01 08:31] LABS: PLATELET SUFFICIENCY NORMAL (NORMAL); TOTAL CELLS COUNTED 100 #CELLS
--- NOTE | 2019-06-01 13:15 | NUR ---
PHYSICAL THERAPY Progress note: Pt was seen for evaluation while on 4th floor with moderate complexity determined. Recommend home health PT upon discharge. Refer to evaluation form for further details. Thank you for this referral. Ya Hogan, PT
[2019-06-01 19:52] LABS: POTASSIUM 3.8 mmol/L (3.5-5.1)
--- NOTE | 2019-06-01 20:00 | NUR ---
24 HOUR CHART CHECK COMPLETE.
--- NOTE | 2019-06-01 23:39 | NUR ---
PT REFUSING TO USE BIPAP
[2019-06-02] VITALS: BP 107/73
[2019-06-02 06:20] LABS: BUN 25 mg/dl (7-24); CHLORIDE 105 mmol/L (98-107); POTASSIUM 3.6 mmol/L (3.5-5.1); SODIUM 139 mmol/L (136-145)
[2019-06-02 06:30] LABS: BASO % 0.2 % (0.0-1.0); EOS % 0.3 % (1.0-4.0); HEMATOCRIT 35.2 % (37.0-47.0); HEMOGLOBIN 11.4 g/dl (12.0-16.0); LYMPH % 33.4 % (27.0-41.0); MEAN CELL VOLUME 99.7 fl (81.0-99.0); MEAN CORPUSCULAR HGB 32.3 pg (27.0-31.0); MEAN CORPUSCULAR HGB CONC 32.4 g/dl (33.0-37.0); MEAN PLATELET VOLUME 11.6 fl (9.6-12.3); MONO # 0.6 10*3/uL (0.1-1.0); MONO % 6.4 % (3.0-9.0); NEUT # 5.4 10*3/uL (2.3-7.9); NEUT % 59.4 % (47.0-73.0); PLATELET COUNT AUTOMATED 149 10*3/uL (130-400); RED BLOOD COUNT 3.53 10*6/uL (4.10-5.10)
[2019-06-02 08:00] VITALS: BP 122/59
--- NOTE | 2019-06-02 08:17 | NUR ---
PHYSICAL THERAPY PT SUPINE IN BED UPON ARRIVAL. PT IDENTIFIED BY NAME AND . PT AGREED TO ALL PT TREATMENT THIS VIST. PT PERFORMED BED MOBILITY (I). PT PERFORMED STS FROM EOB (I). PT GAIT TRAINED 50FT X 2 WITH SBA AND VC'S FOR BREATHING. PT NEGOTIATED STEPS ASCENDING WITH RECIPRICAL PATTERN AND DESCENDING WITH NON-RECIPRICAL PATTERN. PT PERFORMED STS TO EOB (I). PT REPORTED NO PAIN AT THIS TIME. PT SUPINE IN BED WITH CALL LIGHT IN HAND AT END OF SESSION. PT SEEN 1:1 FOR 14MINS. MICHELLE KENNY PTA
--- NOTE | 2019-06-02 09:00 | NUR ---
Lock Plater in to talk to patient. Patient states lives at home with . There are few steps in the home. Physician: [facility] Home health services: none Patient's level of ADLs: INDEPENDENT Patient has working utilities: all working DME: none Follow-up physician's appointment after d/c: will be made by hospitalist nurse director upon discharge Does patient want to access PORTAL?: no Discharge plan discussed with patient, she lives at home with , she is his primary caregiver, she states she is independent in adls and ambulation, she states she will return home when medically stable and denies any home needs, case management will follow. DANY LANDON
--- NOTE | 2019-06-02 10:25 | NUR ---
Occupational therapy orders received and OT evaluation and POC completed in full on floor four. Patient precautions include fall risk. Per OT evaluation, POC, and patient discussion, OT services to be discharged at this time. Patient to defer to physical therapy for higher level balance training. Patient is independent with upper and lower body dressing, toileting, grooming in stance, transfers. Patient complexity is low, [id number]. Thank you for the referral. Kalpana Garcia, OTR/L
[2019-06-02 11:26] VITALS: BP 108/64
--- NOTE | 2019-06-02 12:20 | NUR ---
PHYSICAL THERAPY Per chart review and per speaking with physical therapist assistant, Pt is independent with all functional mobility and doing very well with therapy treatment. Pt is safe and has no PT needs at this time. Pt will be discharged from therapy services at this time. Thank you Heather Mendoza, PT, DPT
--- NOTE | 2019-06-02 15:56 | NUR ---
PT RESTING IN BED. NO DISTRESS NOTED. WILL MONITOR
[2019-06-02 16:00] VITALS: BP 115/60
--- NOTE | 2019-06-02 19:00 | NUR ---
PATIENT REFUSING TO WEAR BIPAP
[2019-06-02 20:00] VITALS: BP 125/53
--- NOTE | 2019-06-02 22:11 | NUR ---
PATIENT C/O IV'S BOTHERING HER AND BEING SORE. IV REMOVED FROM LEFT ARM. IV ACCESS STILL IN RIGHT ARM.
[2019-06-03] VITALS: BP 118/69
--- NOTE | 2019-06-03 02:00 | NUR ---
PATIENT RESTING WITH EYES CLOSED.RESPIRATIONS EASY AND UNLABORED. NO DISTRESS NOTED.CALL LIGHT WITHIN REACH. WILL MONITOR.
--- NOTE | 2019-06-03 04:36 | NUR ---
PATIENT RESTING IN BED WITH EYES CLOSED. RESPIRATIONS EASY AND UNLABORED. CALL KATZ WITHIN REACH. WILL MONITOR.
[2019-06-03 08:00] VITALS: BP 125/64
--- NOTE | 2019-06-03 08:50 | NUR ---
PT RESTING IN BED/ NO DISTRESS NOTED. WILL MONITOR
--- NOTE | 2019-06-03 09:00 | NUR ---
case management visits with patient, she states she will return home when medically stable and denies any home needs
[2019-06-03 12:00] VITALS: BP 119/67
[2019-06-03] MEDS ORDERED: ALDACTONE25 MG PO (13:00)
[2019-06-03] MEDS ORDERED: METOPROLOL SUCC25 M2 PO (13:00)
[2019-06-03] MEDS ORDERED: Vitamin D PO (13:00)
--- NOTE | 2019-06-03 14:54 | NUR ---
Discharge instructions reviewed with patient/family. Patient receptive and verbalizes understanding. Follow-up care arranged. Written instructions given to patient/family. NARCISA HUIZAR
== END 2019-06-03 14:54 | disposition home or self-care (01) | DRG 871 ==
LOC: ED 17:07 → EDHOLD 18:43 → 4E 18:43 → 5E 19:19 → ICCU 23:23 → 4E 05-31 14:31
PROVIDERS: Internal Medicine; Internal Medicine Cardiovascular Disease; Internal Medicine Critical Care Medicine; Student in an Organized Health Care Education/Training Program; ADMIT Emergency Medicine
PROC: 5A09357 Assistance with Respiratory Ventilation, Less than 24 Consecutive Hours, Continuous Positive Airway Pressure (ICD-10-PCS; principal; 2019-05-30)
DX: A41.9 Sepsis, unspecified organism (principal); J18.9 Pneumonia, unspecified organism; I50.23 Acute on chronic systolic (congestive) heart failure; J96.01 Acute respiratory failure with hypoxia; J15.6 Pneumonia due to other Gram-negative bacteria; N17.9 Acute kidney failure, unspecified; J44.0 Chronic obstructive pulmonary disease with (acute) lower respiratory infection; C81.00 Nodular lymphocyte predominant Hodgkin lymphoma, unspecified site; I25.10 Atherosclerotic heart disease of native coronary artery without angina pectoris; E78.5 Hyperlipidemia, unspecified; D75.89 Other specified diseases of blood and blood-forming organs; N32.81 Overactive bladder; G40.909 Epilepsy, unspecified, not intractable, without status epilepticus; R32 Unspecified urinary incontinence; M54.5 Low back pain; I25.5 Ischemic cardiomyopathy; G89.29 Other chronic pain; E11.65 Type 2 diabetes mellitus with hyperglycemia; F32.9 Major depressive disorder, single episode, unspecified; E11.51 Type 2 diabetes mellitus with diabetic peripheral angiopathy without gangrene; I48.0 Paroxysmal atrial fibrillation; E87.6 Hypokalemia; R65.20 Severe sepsis without septic shock; I11.0 Hypertensive heart disease with heart failure; I25.2 Old myocardial infarction; Z95.0 Presence of cardiac pacemaker; Z95.5 Presence of coronary angioplasty implant and graft; Z95.820 Peripheral vascular angioplasty status with implants and grafts; Z85.038 Personal history of other malignant neoplasm of large intestine; Z88.6 Allergy status to analgesic agent; Z88.8 Allergy status to other drugs, medicaments and biological substances; Z79.82 Long term (current) use of aspirin; Z79.899 Other long term (current) drug therapy; Z98.891 History of uterine scar from previous surgery; Z82.49 Family history of ischemic heart disease and other diseases of the circulatory system; Z80.9 Family history of malignant neoplasm, unspecified; Z83.6 Family history of other diseases of the respiratory system; Z71.6 Tobacco abuse counseling

== ENCOUNTER 2019-06-11 07:05 | Inpatient (IN) | payer MEDICARE, OTHER ==
[~2019-06-11] VITALS: Ht 157.4 cm; Wt 59.0 kg
[2019-06-11] VITALS (12 sets, daily range): BP systolic 92–164; BP diastolic 45–84
--- NOTE | ~2019-06-11 | EKG ---
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: : 1945 Requested By: SAROJ YEN Order Number: [id number] Reading MD: Clyde Hernandez MD Measurements Intervals [place] Rate: 70 P: [place]: QRS: 107 QRSD: 116 T: -75 QT: 475 QTc: 513 Interpretive Statements Afib/flut and V-paced complexes No further rhythm analysis attempted due to paced rhythm Nonspecific intraventricular conduction delay Borderline repolarization abnormality Compared to ECG 05/31/2019 00:20:05 ST (T wave) deviation no longer present Electronically Signed On 06-11-2019 17:35:27 PDT by Clyde Hernandez MD CM:EKGRPT:ELECTROCARDIOGRAM REPORT [id number] SAROJ AMBROSIO DRAFT REPORT SAROJ YEN M.D.
--- NOTE | ~2019-06-11 | CON ---
[place], [place] REPORT OF CONSULTATION NAME: ISAIAH FUENTES [facility] #: [id number] UNIT #: [id number] ROOM: [facility] DOCTOR: HANS DOZIER MD BIRTHDATE: [birth year] DOS: 06/12/2019 PULMONARY CONSULTATION, EVALUATION AND MANAGEMENT REASON FOR CONSULTATION: The consultation is requested for assessment of acute respiratory failure. HISTORY OF PRESENT ILLNESS: A 74-year-old white female patient, who has been known to me from her recent admission. She has been admitted to the hospital with acute hypercapnic and severe hypoxic respiratory failure and discharged home after medical management of severe acute congestive heart failure with reduced ejection fraction. The patient was discharged home on 06/03/2019. The patient presented back to the hospital and readmitted to the hospital on 06/11/2019. She came in with symptoms of having significant increased severe shortness of breath occurring at home. The symptoms have been noted gradually worsening, occurred for a few hours prior to the hospitalization. She was also complaining of some nonproductive cough, which was mild. She denies symptoms of wheezing or chest pain. She denies symptoms of hemoptysis. She has been assessed in the Emergency Room. Chest x-ray was done that was noted with bilateral pulmonary infiltration with the differential diagnosis stated pulmonary edema versus pneumonia. She was also noted severe hypercarbia with decreased pH as well with metabolic and respiratory acidosis. She has been started on BiPAP after that. The BiPAP has been used for a few hours in the intensive care unit, and for the last several hours, the patient has not used the BiPAP. She has been using oxygen supplementation this morning sitting on the bed. She has been admitted and treated in Intensive Care Unit. She has been given antibiotics for suspected pneumonia as well. REVIEW OF SYSTEMS: CONSTITUTIONAL SYMPTOMS: Fatigue and tiredness noted. Denies symptoms of fever or chills. EYES: Denies any burning, redness, or tenderness. EARS, NOSE, THROAT SYMPTOMS: Denies sore throat, hoarseness, otalgia, postnasal drainage or epistaxis. CARDIOVASCULAR SYSTEM: Denies anginal pain, edema, or pain of the lower extremities. GASTROINTESTINAL SYMPTOMS: Denies dysphagia, nausea, vomiting, diarrhea, abdominal pain, hematemesis, melena, or hematochezia. GENITOURINARY SYMPTOMS: No dysuria, suprapubic pain, or hematuria. MUSCULOSKELETAL: Denies acute joint pain, redness, or tenderness. CENTRAL NERVOUS SYSTEM: Denies dizziness, headache, diplopia, or syncopal episodes. Remaining systems were reviewed, which were noted all negative. PAST MEDICAL HISTORY: Noted: 1. Permanent atrial fibrillation. 2. Nicotine dependence. 3. History of colon cancer, status-post surgical intervention previously. 4. History of stage 4 Hodgkin's lymphoma. [place], [place] REPORT OF CONSULTATION NAME: ISAIAH FUENTES UNIT #: [id number] ROOM: [facility] DOCTOR: KITTY DOZIER MDM BIRTHDATE: [birth year] 5. Congestive heart failure with reduced ejection fraction. 6. Coronary artery disease with previous myocardial infarction. 7. Hyperlipidemia. 8. Essential hypertension. 9. History of gastrointestinal bleeding. 10. Seizure disorder. 11. Stress incontinence. 12. Intervertebral disk disease. 13. Type 2 diabetes mellitus. PAST SURGICAL HISTORY: 1. Pacemaker insertion. 2. Surgery for bladder. 3. Cardiac catheterization and coronary artery stents insertion. 4. . SOCIAL HISTORY: The patient is . She lives at home. She has been noted history of tobacco use from age of [age] years old, half a pack of cigarettes per day or more, currently smoking about 4-5 cigarettes a day. There is no history of alcohol use or illicit drug use. FAMILY HISTORY: The patient's father of cancer. Mother from complication of heart disease. HOME MEDICATIONS: Listed as Eliquis, aspirin, Lipitor, Plavix, Lasix, Imdur, Keppra, metoprolol succinate, oxybutynin chloride, Aldactone, losartan, potassium chloride, IV vancomycin, Levaquin, Protonix, Zosyn, and some other p.r.n. meds. DRUG ALLERGIES: NOTED ALLERGIC TO PERCOCET. PHYSICAL EXAMINATION: GENERAL: This is a 74-year-old white female, currently noted sitting comfortably on the bed. Height of 5 feet 2 inches, weight of 130 pounds, BMI 23.8. VITAL SIGNS: Recorded temperature noted as normal since hospitalization in the last 24 hours, respiratory rate noted at 40 on admission, currently about 20 breaths per minute. The heart rate was noted tachycardia on admission at 108 beats per minute and recorded as 63 this morning. Blood pressure was 80/42 to 140/80 earlier recorded. Intake of 09:30 about 3.250 liters, next 320 mL. Pulse oxygen saturation on 3 liters nasal cannula was 99% saturation. On admission, pulse oxygen saturation was recorded as only 60%. HEENT: Shows head was atraumatic, eyes nonicterus. NECK: Supple. CARDIOVASCULAR: S1, S2 audible. LUNGS: Noted decreased breath sounds. There was no wheezing or crackles heard in most of the lungs. ABDOMEN: Soft, flat, nontender. Bowel sounds present. EXTREMITIES: Absence of any edema, clubbing or cyanosis. MUSCULOSKELETAL: The patient is noted without any acute deformities. [place], [place] REPORT OF CONSULTATION NAME: ISAIAH FUENTES UNIT #: [id number] ROOM: [facility] DOCTOR: [facility]EL[facility]FE [facility] [birth year] CENTRAL NERVOUS SYSTEM: Cranial nerves 2-12 intact. LABORATORY DATA: CBC yesterday on admission, WBC count 14,000, hemoglobin 15.3, platelet count 298,000. PT and PTT were noted as normal PT and PTT yesterday. The CMP yesterday, BUN 13, creatinine 1.06, glucose 361, potassium 3.3, CO2 was only 15. AST 37, ALT normal. Troponin first set was noted minimally elevated at 0.198. Lactic acid yesterday noted as 7.3. The other 2 troponin sets in the last 24 hours were noted as mildly elevated. The lactic acid followup was 1.6 in a few hours later on after admission. Arterial blood gas that was done in the Emergency Room on admission at 7:20 a.m., pH of 7.17, pCO2 44, pO2 61.9 on 60% oxygen supplementation with BiPAP Another arterial blood gas done several hours later that I ordered after my consultation shows pH of 7.38, pCO2 40, pO2 99.1. Reviewed the radiology data this as well. The chest x-ray that was done yesterday on presentation had finding of diffuse pulmonary edema picture noted with small pleural effusions, pacemaker 2 leads, dual pacemaker noted in the left chest. The chest x-ray, which was done this morning, shows remarkable improvement and resolution of the pulmonary edema picture and infiltration, small pleural fluid was noted in the right side, resolution of pleural fluid in the left side was seen, mild cardiomegaly was noted. IMPRESSION: 1. The patient has been currently admitted to the hospital, noted with severe metabolic acidosis secondary to lactic acidosis secondary to acute congestive heart failure with pulmonary edema. The current finding is not suggestive of any acute pulmonary infection including pneumonia. 2. Pleural fluid related to the congestive heart failure. 3. Coronary artery disease. Possibility of myocardial infarction or demand ischemia resulting in elevated troponin would be considered. 4. History known of congestive heart failure with reduced ejection fraction. 5. The patient with type 2 diabetes mellitus, noted abnormal glucose on admission secondary to stress as well. 6. Mildly abnormal liver function test related to current passive congestion of the liver as well. 7. History of low-grade nicotine dependence. 8. Other multiple medical problems reported including history of cancer of the colon and lymphoma from the past. Chronic obstructive pulmonary disease is also suspected chronically as well. PLAN OF MANAGEMENT: Continue to maximize the medical management including congestive heart failure and diuretic therapy. The patient will benefit from biventricular pacing to help improve the congestive heart failure on long-term basis and also other adjustment in medication for the chronic congestive heart failure with reduced ejection fraction. The patient is already being assessed by Cardiology Service with plan for transfer to [facility] for attempt to have pacemaker change of the biventricular pacemaker. In the meantime, all other therapy, plan of management to continue during the hospitalization. At this time, use of BiPAP is not necessary. Titrate the oxygen supplementation to maintain pulse ox saturation 92% or greater. Usual [place], [place] REPORT OF CONSULTATION NAME: ISAIAH FUENTES UNIT #: [id number] ROOM: [facility] DOCTOR: HANS DOZIER MD BIRTHDATE: [birth year] care, other therapy, plan of management, other care and plan of treatments. Supportive care. Anticoagulation with Eliquis will be continued. Continue aspirin therapy as well. Thank you for allowing me to participate in the care of this patient. HANS COLE MD CM:CONSTR:REPORT OF CONSULTATION 1613 06/20/19 1028 interface
--- NOTE | ~2019-06-11 | EKG ---
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 : 1945 Requested By: SAROJ YEN Order Number: [id number] Reading MD: Clyde Hernandez MD Measurements Intervals [place] Rate: 95 P: [place]: QRS: 104 QRSD: 113 T: -76 QT: 445 QTc: 560 Interpretive Statements Atrial-sensed ventricular-paced complexes No further rhythm analysis attempted due to paced rhythm Borderline intraventricular conduction delay Nonspecific repol abnormality, diffuse leads Minimal ST elevation, lateral leads Prolonged QT interval Compared to ECG 05/31/2019 00:20:05 Prolonged QT interval now present Atrial fibrillation no longer present ST (T wave) deviation still present Electronically Signed On 06-11-2019 17:34:22 PDT by Clyde Hernandez MD CM:EKGRPT:ELECTROCARDIOGRAM REPORT [id number] SAROJ AMBROSIO DRAFT REPORT SAROJ YEN M.D.
--- NOTE | ~2019-06-11 | EKG ---
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1945 Requested By: SAROJ YEN Order Number: [id number] Reading MD: Clyde Hernandez MD Measurements Intervals [place] Rate: 90 P: [place]: QRS: 112 QRSD: 122 T: -60 QT: 363 QTc: 444 Interpretive Statements Afib/flut and V-paced complexes No further rhythm analysis attempted due to paced rhythm Nonspecific intraventricular conduction delay Nonspecific repol abnormality, inferior leads ST elevation, consider anterolateral injury Baseline wander in lead(s) V1 Compared to ECG 05/31/2019 00:20:05 Myocardial infarct finding now present ST (T wave) deviation still present Electronically Signed On 06-11-2019 17:33:46 PDT by Clyde Hernandez MD CM:EKGRPT:ELECTROCARDIOGRAM REPORT [id number] SAROJ AMBROSIO DRAFT REPORT SAROJ YEN M.D.
[~2019-06-11 07:05] MED LIST changes: +ALDACTONE25 MG PO; +DIOVAN80 M1 PO; +FUROSEMIDE20 M1 PO; +METOPROLOL SUCC25 M2 PO; +Vitamin D PO
--- NOTE | 2019-06-11 07:23 | NUR ---
PATIENT BROUGHT IN BY AMBULANCE ON THEIR CPAP MASK. PATIENT WAS REMOVED TO A 4 L NASAL CANNULA FOR BASELINE BREATH SOUNDS. RHONCHI AND WHEEZES PRESENT AND EXTREMELY MOIST LUNG SOUNDS. PATIENT PLACED ON BIPAP AT 14/8 60% FOR AN APPARENT CHF OR COPD EXCERBATION.DOCTOR AND NURSE AWARE.
[2019-06-11 07:24] LABS: ABG HCO3 16.2 mmol/l (22-26); ABG O2 SATURATION 85.1 % (95-97); ARTERIAL BLOOD GAS PCO2 44.5 mmHg (35-45); ARTERIAL BLOOD GAS PO2 61.9 mmHg (80-90)
[2019-06-11 07:28] LABS: ABG BASE EXCESS -12.3 mmol/L (-2.0-2.0)
[2019-06-11 07:29] LABS: ARTERIAL BLOOD GAS PH 7.179 (7.35-7.45)
[2019-06-11 07:34] LABS: BASO # 0.1 10*3/uL (0.0-0.1); BASO % 0.9 % (0.0-1.0); EOS # 0.1 10*3/uL (0.0-0.4); EOS % 0.4 % (1.0-4.0); HEMATOCRIT 50.3 % (37.0-47.0); HEMOGLOBIN 15.3 g/dl (12.0-16.0); LYMPH # 3.9 10*3/uL (1.3-4.4); MEAN CELL VOLUME 104.8 fl (81.0-99.0); MEAN CORPUSCULAR HGB 31.9 pg (27.0-31.0); MEAN CORPUSCULAR HGB CONC 30.4 g/dl (33.0-37.0); MEAN PLATELET VOLUME 11.2 fl (9.6-12.3); MONO # 0.5 10*3/uL (0.1-1.0); MONO % 3.3 % (3.0-9.0); NEUT # 9.3 10*3/uL (2.3-7.9); NEUT % 66.5 % (47.0-73.0); PLATELET COUNT AUTOMATED 298 10*3/uL (130-400); RED CELL DISTRI WIDTH 15.7 % (0-14.5)
[2019-06-11 07:44] LABS: ACT PARTIAL THROMBO TIME 29.1 SECONDS (20.0-32.1); INTERNATIONAL NORM RATIO 1.1 (2.0-3.5)
[2019-06-11 07:49] LABS: ALBUMIN 3.5 gm/dl (3.1-4.5); ALKALINE PHOSPHATASE 100 U/L (45-117); BUN 13 mg/dl (7-24); CHLORIDE 109 mmol/L (98-107); CREATININE 1.06 mg/dL (0.55-1.02); POTASSIUM 3.3 mmol/L (3.5-5.1); SGOT/AST 37 IU/L (3-35); SGPT/ALT 26 U/L (12-78); SODIUM 138 mmol/L (136-145); TOTAL PROTEIN 7.5 gm/dL (6.4-8.2)
[2019-06-11 07:56] LABS: TROPONIN I 0.198 ng/ml (<0.045)
--- NOTE | 2019-06-11 07:57 | NUR ---
ANÍBAL HADDAD IS HERE TO SEE PT AT THIS TIME. CANDI RICHMOND
--- NOTE | 2019-06-11 07:57 | NUR ---
CRITICAL PH ON ABG OF 7.[address] YEN AT 0730. CANDI RICHMOND
--- NOTE | 2019-06-11 08:06 | NUR ---
QUINTEROS CATHETER PLACED PER VERBAL ORDER OF DR YEN. PATIENT ON BIPAP AND GIVEN BUMEX AND LASIX.
--- NOTE | 2019-06-11 08:10 | NUR ---
PATIENT FAMILY DENIES ANY WOUNDS AT THIS TIME. PATIENT HAS HAD PACEMAKER PUT IN ABOUT 5 WEEKS AGO. WOUND APPEARS TO BE SCABBED AND WITHIN NORMAL LIMITS HEALING.
--- NOTE | 2019-06-11 09:20 | NUR ---
PATIENT TAKEN TO [facility] BY THIS NURSE AND ALLISON FROM RESPIRATORY AT THIS TIME. NO CHANGE IN PATIENT STATUS. PATIENT TOLERATED NON REBREATHER WELL UPON TRANSPORT. BEDSIDE REPORT GIVEN TO SHAUN RICHMOND. BELONGINGS HAVE BEEN TAKEN HOME BY FAMILY.
--- NOTE | 2019-06-11 09:30 | NUR ---
A 74, admitted to [facility], under the services of VON Nunez DO with a diagnosis of PULMONARY EDEMA, RESPIRATORY FAILURE, PNEUMONIA. Chief complaint is INCREASED SHORTNESS OF BREATH. Patient arrived via stretcher from ER. Monitor applied. Initial assessment completed. Vital signs taken and recorded. VON NUNEZ DO notified of admission to the unit. Orders received. See assessment for past medical history, medications and allergies. Patient and/or family oriented to unit. [facility] visitation policy reviewed. Clothing/patient valuable form completed. HOSSEIN RAJAN
[2019-06-11 10:10] LABS: ABG BASE EXCESS -1.1 mmol/L (-2.0-2.0); ABG HCO3 23.2 mmol/l (22-26); ABG O2 SATURATION 97.4 % (95-97); ARTERIAL BLOOD GAS PCO2 40.4 mmHg (35-45); ARTERIAL BLOOD GAS PH 7.38 (7.35-7.45); ARTERIAL BLOOD GAS PO2 99.1 mmHg (80-90)
--- NOTE | 2019-06-11 10:40 | NUR ---
DR MENDEZ'S OFFICE NOTIFIED OF CONSULT.
--- NOTE | 2019-06-11 10:40 | NUR ---
DR COLE UPDATED ON CONSULT AND MOST RECENT LABS. ORDER RECEIVED FOR 2 VIEW CXR IN AM.
[2019-06-11] MEDS ORDERED: TOPROL XL25 MG PO (10:57)
--- NOTE | 2019-06-11 13:36 | NUR ---
DR DAVID NOTIFIED OF TROPONIN LEVEL OF 0.734
--- NOTE | 2019-06-11 16:02 | NUR ---
PT RESTING. PT DENIES C/O SOB OR CHEST PAIN. WILL CONTINUE TO MONNITOR PT.
--- NOTE | 2019-06-11 17:19 | NUR ---
MESSAGE SEDNT TO DR MENDEZ THROUGH HIS ANSWERING SERVICE R/T CRITICAL TROPONIN LEVEL. DR DAVID UPDATED.
[2019-06-12] VITALS: BP 90/42
[2019-06-12 04:00] VITALS: BP 92/46
[2019-06-12 06:25] LABS: ALBUMIN 2.5 gm/dl (3.1-4.5); ALKALINE PHOSPHATASE 60 U/L (45-117); BUN 14 mg/dl (7-24); CHLORIDE 105 mmol/L (98-107); CREATININE 0.69 mg/dL (0.55-1.02); PHOSPHOROUS 2.3 mg/dL (2.5-4.9); POTASSIUM 3.2 mmol/L (3.5-5.1); SGOT/AST 22 IU/L (3-35); SGPT/ALT 18 U/L (12-78); SODIUM 141 mmol/L (136-145); TOTAL PROTEIN 5.5 gm/dL (6.4-8.2)
[2019-06-12 06:29] LABS: BASO % 0.3 % (0.0-1.0); EOS % 0.3 % (1.0-4.0); HEMATOCRIT 36.9 % (37.0-47.0); HEMOGLOBIN 11.6 g/dl (12.0-16.0); INTERNATIONAL NORM RATIO 1.3 (2.0-3.5); LYMPH # 2.5 10*3/uL (1.3-4.4); LYMPH % 21.3 % (27.0-41.0); MEAN CORPUSCULAR HGB 31.2 pg (27.0-31.0); MEAN CORPUSCULAR HGB CONC 31.4 g/dl (33.0-37.0); MEAN PLATELET VOLUME 11.2 fl (9.6-12.3); MONO # 0.6 10*3/uL (0.1-1.0); MONO % 5.2 % (3.0-9.0); NEUT # 8.5 10*3/uL (2.3-7.9); NEUT % 72.6 % (47.0-73.0); RED BLOOD COUNT 3.72 10*6/uL (4.10-5.10); RED CELL DISTRI WIDTH 15.4 % (0-14.5); WHITE BLOOD COUNT 11.7 10*3/uL (4.8-10.8)
[2019-06-12 06:52] LABS: MEAN CELL VOLUME 99.2 fl (81.0-99.0)
[2019-06-12 06:53] LABS: PLATELET COUNT AUTOMATED 199 10*3/uL (130-400)
[2019-06-12 08:00] VITALS: BP 80/42
--- NOTE | 2019-06-12 08:49 | NUR ---
Awake and alert. to RAD for 2 view chest , returned to room. Dr. [facility] aware of hypotension, States is OK w/ SBP 80-90. [facility] .
[2019-06-12 11:08] VITALS: BP 87/42
--- NOTE | 2019-06-12 11:26 | NUR ---
1041 Report called to Alejandra at [facility] [phone] . pt. to go to [facility] here and aware. [facility] here for transport , report given. No belongings w/ pt. except upper denture. Dtr stated she took all belongings home yesterday. Transported to [facility] see discharge summary.
--- NOTE | 2019-06-13 13:19 | NUR ---
Nursing screen received 06/01/19. Patient was discharged to [facility] before screen completed. Thank you. Edwige Marc OTR/l
== END 2019-06-12 11:30 | disposition short-term general hospital (02) | DRG 871 ==
LOC: ED 07:05 → EDHOLD 08:47 → ICCU 08:47
PROVIDERS: Emergency Medicine; Internal Medicine Critical Care Medicine; Student in an Organized Health Care Education/Training Program; ADMIT Internal Medicine
PROC: 5A09357 Assistance with Respiratory Ventilation, Less than 24 Consecutive Hours, Continuous Positive Airway Pressure (ICD-10-PCS; principal; 2019-06-11)
PROC: 5A09357 Assistance with Respiratory Ventilation, Less than 24 Consecutive Hours, Continuous Positive Airway Pressure (ICD-10-PCS; 2019-06-12)
DX: A41.9 Sepsis, unspecified organism (principal); N17.0 Acute kidney failure with tubular necrosis; J18.9 Pneumonia, unspecified organism; I50.23 Acute on chronic systolic (congestive) heart failure; R65.21 Severe sepsis with septic shock; J96.01 Acute respiratory failure with hypoxia; J96.02 Acute respiratory failure with hypercapnia; I24.8 Other forms of acute ischemic heart disease; J44.0 Chronic obstructive pulmonary disease with (acute) lower respiratory infection; E87.4 Mixed disorder of acid-base balance; D75.89 Other specified diseases of blood and blood-forming organs; E87.6 Hypokalemia; E87.8 Other disorders of electrolyte and fluid balance, not elsewhere classified; E55.9 Vitamin D deficiency, unspecified; E11.65 Type 2 diabetes mellitus with hyperglycemia; G40.909 Epilepsy, unspecified, not intractable, without status epilepticus; R32 Unspecified urinary incontinence; I25.10 Atherosclerotic heart disease of native coronary artery without angina pectoris; I11.0 Hypertensive heart disease with heart failure; G89.29 Other chronic pain; F32.9 Major depressive disorder, single episode, unspecified; E78.5 Hyperlipidemia, unspecified; M54.5 Low back pain; I08.1 Rheumatic disorders of both mitral and tricuspid valves; F03.90 Unspecified dementia, unspecified severity, without behavioral disturbance, psychotic disturbance, mood disturbance, and anxiety; K76.1 Chronic passive congestion of liver; I25.5 Ischemic cardiomyopathy; E11.51 Type 2 diabetes mellitus with diabetic peripheral angiopathy without gangrene; I48.0 Paroxysmal atrial fibrillation; F17.210 Nicotine dependence, cigarettes, uncomplicated; Z71.6 Tobacco abuse counseling; Z95.0 Presence of cardiac pacemaker; I25.2 Old myocardial infarction; Z85.038 Personal history of other malignant neoplasm of large intestine; Z88.6 Allergy status to analgesic agent; Z87.01 Personal history of pneumonia (recurrent); Z85.71 Personal history of Hodgkin lymphoma; Z95.5 Presence of coronary angioplasty implant and graft; Z98.891 History of uterine scar from previous surgery; Z82.49 Family history of ischemic heart disease and other diseases of the circulatory system; Z82.5 Family history of asthma and other chronic lower respiratory diseases; Z80.8 Family history of malignant neoplasm of other organs or systems; Z79.899 Other long term (current) drug therapy; Z79.82 Long term (current) use of aspirin; Z79.02 Long term (current) use of antithrombotics/antiplatelets; Z91.11 Patient's noncompliance with dietary regimen

== ENCOUNTER 2020-05-28 00:37 | Inpatient (IN) | payer MEDICARE, OTHER ==
[~2020-05-28] VITALS: Ht 162.6 cm; Wt 53.1 kg
[2020-05-28] VITALS (8 sets, daily range): BP systolic 86–109; BP diastolic 52–80
[~2020-05-28 00:37] MED LIST changes: +ATIVAN0.5 MG PO; +ATIVAN1 MG PO; +BUMETANIDE2 MG PO; +CELEXA20 MG PO; +CHOLESTYRAMI239.4 GM PO; +CHOLESTYRAMINE R5 GM MC; +COMBIVENT RESPIM4 GM INH; +GLYCOPYRROLATE2 MG PO; +Humalog SQ; +Ipratropium Brom3 ML INH; +MORPHINE S SL; +MORPHINE S100 MG/5 M PO; +ONDANSETRON HYDR4 MG PO; +POTASSIUM CHLO10 ME4 PO; +POTASSIUM CHLO20 ME4 PO; +ROBINUL PO; +TOPROL XL25 MG PO; +TYLENOL325 M2 PO; +ZOFRAN4 MG PO
--- NOTE | 2020-05-28 00:51 | NUR ---
RESP HERE AT BEDSIDE TO PLACE PATIENT ON BIPAP PER DEISY DELGADO
--- NOTE | 2020-05-28 00:51 | NUR ---
BRUISE NOTED TO THE LEFT UPPER LEG.
[2020-05-28 01:17] LABS: HEMATOCRIT 43.1 % (37.0-47.0); MEAN CELL VOLUME 99.1 fl (81.0-99.0); MEAN CORPUSCULAR HGB 29.9 pg (27.0-31.0); MEAN CORPUSCULAR HGB CONC 30.2 g/dl (33.0-37.0); MEAN PLATELET VOLUME 11.5 fl (9.6-12.3); NUCLEATED RED BLOOD CELL 0.2 10*3/uL (0.0-0.0); NUCLEATED RED BLOOD CELL 1.6 % (0.0-0.0); PLATELET COUNT AUTOMATED 211 10*3/uL (130-400); RED BLOOD COUNT 4.35 10*6/uL (4.10-5.10); WHITE BLOOD COUNT 11.4 10*3/uL (4.8-10.8)
[2020-05-28 01:28] LABS: INTERNATIONAL NORM RATIO 1.3 (2.0-3.5)
[2020-05-28 01:35] LABS: ALBUMIN 2.5 gm/dl (3.1-4.5); ALKALINE PHOSPHATASE 136 U/L (45-117); BUN 21 mg/dl (7-24); CHLORIDE 105 mmol/L (98-107); CREATININE 0.78 mg/dL (0.55-1.02); SGOT/AST 20 IU/L (3-35); SGPT/ALT 13 U/L (12-78); SODIUM 135 mmol/L (136-145); TOTAL PROTEIN 6.6 gm/dL (6.4-8.2)
[2020-05-28 01:36] LABS: POTASSIUM 4.4 mmol/L (3.5-5.1); TROPONIN I 0.098 ng/ml (<0.045)
[2020-05-28 01:44] LABS: PLATELET SUFFICIENCY NORMAL (NORMAL); POLYCHROMASIA SLIGHT; TOTAL CELLS COUNTED 100 #CELLS
[2020-05-28 01:45] LABS: BURR CELLS FEW
--- NOTE | 2020-05-28 01:56 | NUR ---
PT SET UP ON BIPAP. 28/03 WITH A BACK UP RATE OF 8. 02 40% WITH A SPO2 OF 96% . ALARMS ON AND AUDIBLE.
--- NOTE | 2020-05-28 03:00 | NUR ---
PT IN BED. NOT TOLERATING BIPAP WELL. SPO2 100% ON BIPAP AT THIS TIME. TRYING TO PULL BIPAP OFF. RN WILL CONT TO MONITOR
--- NOTE | 2020-05-28 03:05 | NUR ---
BASILIO MEEHAN NOTIFIED AT [facility] OF PT ADMISSION.
--- NOTE | 2020-05-28 03:50 | NUR ---
Time: 349 A 75 year old F admitted to 4E under services of ROMINA WRIGHT DO. Pt. arrived via stretcher from ER. Chief complaint: SHORTNESS OF BREATH. TRACE ARCOS
--- NOTE | 2020-05-28 04:10 | NUR ---
NOTIFIED DR. KLEIN OF CRITICAL LACTIC ACID OF 2.8. NO NEW ORDERS RECEIVED. WILL CONTINUE TO MONITOR
[2020-05-28] MEDS ORDERED: K-TAB20 MEQ PO (05:57)
[2020-05-28] MEDS ORDERED: ZOFRAN4 MG PO (05:58)
--- NOTE | 2020-05-28 06:40 | NUR ---
DR. KLEIN INFORMED OF ELEVATED TROPONIN AND LACTIC ACID. NO NEW ORDRS RECIEVED AT THIS TIME.
--- NOTE | 2020-05-28 07:00 | NUR ---
PATIENT SEEMS MORE CONFUSED AT THIS TIME, PULSE OX IN 80'S. SWITCHED TO 100% NONREBREATHER. RESPIRATORY IN ROOM. PULSE OX 90. UNABLE TO OBTAIN BLOOD PRESSURE/ABG. DR. DAVIS IN ROOM AND UPDATED ON CONDITION. OTHER STAFF MEMBERS CALLED POLE SHAVER HELPER AND FAMILY MEMBERS TO COME SEE PATIENT. WILL CONTINUE TO MONITOR. BED IS LOW, LOCKED, ALARMED, AND CALL LIGHT IS WITHIN REACH.
--- NOTE | 2020-05-28 07:30 | NUR ---
UNABLE TO OBTAIN ABG AT THIS TIME DUE TO PT. CONDITION. RN AND DR. FLOWERS AT BEDSIDE.
--- NOTE | 2020-05-28 07:45 | NUR ---
PHYSICAL THERAPY Evad and Screen received will follow, thank you Rona Rucker PT
--- NOTE | 2020-05-28 11:21 | NUR ---
PHYSICAL THERAPY PT evaluation attempted this date. Per nursing, patient is not appropriate for skilled PT evaluation at this time due to blood pressure. Will follow to complete Evaluation. Thank you. Isabella Dyson,PT,DPT
--- NOTE | 2020-05-28 11:41 | NUR ---
Hold Therapy evaluation d/t blood pressure issues and impaired medical status. OTR will recheck at a later date. Lily Marc OTR/L
--- NOTE | 2020-05-28 16:55 | NUR ---
SPOKE TO PT ABOUT NEW CONSULT FOR BP MANAGEMENT. PT STATES HE DOES NOT WANT TO STAY ANOTHER NIGHT FOR BP MANAGEMENT. SPOKE WITH DR DAVID ON THE PHONE IN REGARDS TO THIS. DR DAVID STATES HE WILL HAVE TO GO AMA IF HE WISHES TO DO SO. PT STATES HE WILL LEAVE AMA. VICKY RICHMOND QUARTZ ORIENTATOR AWARE. DR DAVID AWARE. PT TO LEAVE AMA. PT WILL ANTIBX THERAPY TO CONTINUE AT HOME WITH HIS HH AGENCY. SILVINO DUAL LUMEN PICC LINE INTACT.
--- NOTE | 2020-05-28 23:30 | NUR ---
NO DISTRESS NOTED, PATIENT RESTING QUIETLY. RESP ARE EASY AND REGULAR, NO OVERT DISTRESS NOTED. BED IS LOCKED IN LOWEST POSITION, ALARM MAINTAINED. CALL LIGHT WITHIN REACH
[2020-05-29] VITALS: BP 84/43
--- NOTE | 2020-05-29 00:28 | NUR ---
MADE AWARE THAT HOME MEDS ARE UPDATED.
--- NOTE | 2020-05-29 00:50 | NUR ---
NOTED THAT IV ATX NOT ON FLOOR, DATA DEVELOPER MADE AWARE.
[2020-05-29 06:56] LABS: BASO % 0.2 % (0.0-1.0); EOS # 0.1 10*3/uL (0.0-0.4); HEMATOCRIT 35.9 % (37.0-47.0); LYMPH # 1.3 10*3/uL (1.3-4.4); LYMPH % 14.5 % (27.0-41.0); MEAN CORPUSCULAR HGB 29.7 pg (27.0-31.0); MEAN CORPUSCULAR HGB CONC 30.6 g/dl (33.0-37.0); MEAN PLATELET VOLUME 11.8 fl (9.6-12.3); MONO # 0.5 10*3/uL (0.1-1.0); MONO % 5.7 % (3.0-9.0); NEUT # 6.9 10*3/uL (2.3-7.9); NUCLEATED RED BLOOD CELL 0.3 % (0.0-0.0); PLATELET COUNT AUTOMATED 178 10*3/uL (130-400); RED CELL DISTRI WIDTH 23.6 % (0-14.5); WHITE BLOOD COUNT 8.8 10*3/uL (4.8-10.8)
--- NOTE | 2020-05-29 07:00 | NUR ---
ARRIVED ON SHIFT REPORT RECEIVED FROM OFFGOING NURSE, ASSUMED CARE OF PATIENT.
--- NOTE | 2020-05-29 07:19 | NUR ---
Shift chart check completed.
[2020-05-29 07:28] LABS: CHLORIDE 106 mmol/L (98-107); SODIUM 142 mmol/L (136-145)
--- NOTE | 2020-05-29 07:30 | NUR ---
INTRODUCED SELF TO PATIENT, BED IN LOW POSITION, WHEEL LOCKS ENGAGED, SIDE RAILS UP X 2 FOR TURNING AND REPOSITIONING, BED ALARM ON, CALL LIGHT WITHIN REACH, NO NEEDS VOICED AT THIS TIME, WHITE BOARD UPDATED.
[2020-05-29 07:38] LABS: ALBUMIN 2.2 gm/dl (3.1-4.5); ALKALINE PHOSPHATASE 103 U/L (45-117); BUN 18 mg/dl (7-24); CREATININE 0.64 mg/dL (0.55-1.02); SGOT/AST 16 IU/L (3-35); SGPT/ALT 9 U/L (12-78); TOTAL PROTEIN 5.6 gm/dL (6.4-8.2)
[2020-05-29 07:40] LABS: POTASSIUM 3.1 mmol/L (3.5-5.1)
[2020-05-29 08:00] VITALS: BP 86/47
--- NOTE | 2020-05-29 09:00 | NUR ---
PHYSICAL THERAPY PT EVAL COMPLETED TODAY ON LEVEL 4: FULL EVAL TO FOLLOW. RECOMMEND PT WHILE HERE TO ADDRESS DEFICITS INCLUDING DECREASED STRENGTH AND BALANCE AND FUNCTIONAL MOBILITY. PT EVAL IS MDOERATE COMPLEXITY; [address]298. D/C RECOMMENDATIONS ARE TO RETURN TO [facility]F WHEN MEDICALLY ABLE. WAS PLEASANT AND COOPERATIVE THROUGHOUT SESSION TODAY AND ABLE TO FOLLOW INSTRUCTIONS DURING EVALUATION. THANK YOU FOR REFERRAL ARIANE HOWELL PT
--- NOTE | 2020-05-29 09:03 | NUR ---
patient is short term at [facility] for jail care. patient will return when discharged. case management will talk with patient's daughter regarding any other needs
[2020-05-29 12:00] VITALS: BP 112/59
[2020-05-29 16:00] VITALS: BP 111/60
[2020-05-29 20:00] VITALS: BP 94/62
--- NOTE | 2020-05-29 22:30 | NUR ---
PATIENT FINGERSTICK BGM IS 166. PATIENTS BGM IS TYPICALLY LOW TO WERE SSI IS NOT NEEDED AND LOW IN THE AM. INSULIN NOT GIVEN PER NURSING JUDGEMENT.
[2020-05-30] VITALS: BP 93/50
--- NOTE | 2020-05-30 07:00 | NUR ---
ARRIVED ON SHIFT, REPORT RECEIVED FROM OFFGOING NURSE, ASSUMED CARE OF PATIENT.
[2020-05-30 07:07] LABS: BASO % 0.3 % (0.0-1.0); EOS # 0.1 10*3/uL (0.0-0.4); EOS % 1.5 % (1.0-4.0); HEMATOCRIT 37.5 % (37.0-47.0); LYMPH # 1.1 10*3/uL (1.3-4.4); LYMPH % 15.1 % (27.0-41.0); MEAN CELL VOLUME 96.4 fl (81.0-99.0); MEAN CORPUSCULAR HGB CONC 30.1 g/dl (33.0-37.0); MONO # 0.5 10*3/uL (0.1-1.0); MONO % 7.1 % (3.0-9.0); NEUT # 5.4 10*3/uL (2.3-7.9); NEUT % 75.4 % (47.0-73.0); PLATELET COUNT AUTOMATED 182 10*3/uL (130-400); RED BLOOD COUNT 3.89 10*6/uL (4.10-5.10); RED CELL DISTRI WIDTH 23.9 % (0-14.5); WHITE BLOOD COUNT 7.2 10*3/uL (4.8-10.8)
--- NOTE | 2020-05-30 07:20 | NUR ---
Shift chart check completed.
[2020-05-30 07:31] LABS: ALBUMIN 2.1 gm/dl (3.1-4.5); CHLORIDE 104 mmol/L (98-107); POTASSIUM 3.4 mmol/L (3.5-5.1); SODIUM 136 mmol/L (136-145)
[2020-05-30 07:37] LABS: ALKALINE PHOSPHATASE 108 U/L (45-117); BUN 16 mg/dl (7-24); CREATININE 0.49 mg/dL (0.55-1.02); SGOT/AST 17 IU/L (3-35); SGPT/ALT 12 U/L (12-78); TOTAL PROTEIN 5.6 gm/dL (6.4-8.2)
[2020-05-30 08:00] VITALS: BP 107/65
--- NOTE | 2020-05-30 11:00 | NUR ---
PHYSICAL THERAPY patient seen in room today for 1:1 treatment with this PT. completed BLE AROM and AAROM for 2 sets of 10 with mod verbal cues. Completed rolling L and R with railing for 4 bouts with min of 1 and sup <> sit with mod of 1 and sat bedside for 5 mins working on trunk strength and balance. Did STS from bedside for 3 bouts and stood for 20-30 sec each bout with max of 1 with WBAT on LLE. Pleasant and cooperative today but increased confusion compared to yesterday. Returned to supine lying in bed with bed alarm in place and call light in reach. d/cplans remain to return to SNF.thank you pastora dugan PT
[2020-05-30 12:00] VITALS: BP 110/67
[2020-05-30 16:00] VITALS: BP 114/66
[2020-05-30 20:00] VITALS: BP 102/83
--- NOTE | 2020-05-30 20:11 | NUR ---
24 HR chart check completed.
--- NOTE | 2020-05-30 21:00 | NUR ---
AWAKE, PLEASANTLY DISORIENTED. RESPIRATIONS EASY. LUNGS DIMINISHED, CLEAR. PULSE OX 100% 2L. RIGHT HIP NOTED TO BE ECCHYMOTIC WITH SURGICAL INCISION HEALING AND WOUND WELL APPROXIMATED. CALL LIGHT WITHIN REACH. NO VOICED COMPLAINTS. BED ALARM MAINTAINED FOR SAFEY
--- NOTE | 2020-05-30 21:56 | NUR ---
RESTLESS. RESTORIL PROVIDED PER PRN ORDER TO ASSIST WITH SLEEP. WILL MONITOR
--- NOTE | 2020-05-30 22:45 | NUR ---
MEDS APPEAR EFFECTIVE. RESTING WITH EYES CLOSED. RESPIRATIONS EASY. CALL LIGHT WITHIN REACH. BED ALARM MAINTAINED
[2020-05-31] VITALS: BP 100/72
--- NOTE | 2020-05-31 | NUR ---
SLEEPING. NO ACUTE DISTRESS NOTED. RESPIRATIONS EASY. VSS. CALL LIGHT WITHIN REACH. BED ALARM MAINTAINED
--- NOTE | 2020-05-31 06:00 | NUR ---
SLEPT THROUGHOUT NIGHT WITH NO DISTRESS NOTED. RESPIRATIONS EASY. CALL LIGHT WITHIN REACH. NO VOICED COMPLAINTS THIS SHIFT. BED ALARM MAINTAINED
[2020-05-31 06:42] LABS: BUN 14 mg/dl (7-24); CHLORIDE 105 mmol/L (98-107); CREATININE 0.56 mg/dL (0.55-1.02); POTASSIUM 3.7 mmol/L (3.5-5.1); SODIUM 136 mmol/L (136-145)
--- NOTE | 2020-05-31 07:00 | NUR ---
BSG 46, REPEAT 55. STAT REFLEX ORDERED 51. DEXTROSE GIVEN PER ORDER.
[2020-05-31 08:00] VITALS: BP 117/83
--- NOTE | 2020-05-31 08:00 | NUR ---
Per nursing note, patient's blood sugar was 46 then 55. Nursing had not yet re-checked blood sugar since. OT will recheck at a later time. Lily Marc OTR/L
--- NOTE | 2020-05-31 08:18 | NUR ---
Patient not available, Dr Kasper is with the patient. Lily Marc OTr/l
--- NOTE | 2020-05-31 08:29 | NUR ---
Patient comes in from [facility] short term. Faxed updated clinicals and PT eval for review. Patient is ok to return when stable.
--- NOTE | 2020-05-31 09:30 | NUR ---
PHYSICAL THERAPY Patient seen this am 1;1 for therapy visit and was just finishing breakfast, supine in bed upon therapist arrival. Patient identified by name / as her Nurse was present this morning during MED pass. Patient voices no c/o's pain and is WBAT on L LE, tranfering supine to sit EOB with MOD A, as she was able to slide her legs towards EOB this session. Patient tolerated static EOB sit x approx 5 minutes, CGA, without c/o, then completed several sit to stand transfers at bedside, MOD A x 1, use of wh walker standing support. Patient tolerated approx 30 seconds static stand each trial and completed SPT to bedside chair, wh walker, MIN A, including 2-3 forward / side steps. Patient remained in chair with call light, tray table, telephone and body alarm for safety. Will continue per POC as tolerated, total treatment time 17 minutes. Herman Sanderson, TERRITORY REPRESENTATIVE
[2020-05-31 12:00] VITALS: BP 116/80
--- NOTE | 2020-05-31 13:30 | NUR ---
PHYSICAL THERAPY Patient seen this pm 1:1 for second therapy visit and was still sitting up in bedside chair upon therapist arrival. Patient identified by name / and presented with continuos O2-2L via NC. Patient reports no c/o's pain and able to complete several sit to stand transfers, MIN A from low chair surface, use of wh walker standing support. Patient tolerated approx 60-90 seconds static stand each trial and was also able to ambulate 10'x 1, CGA, wh walker, while demonstrating very slow, cautious gait pattern. Patient returned to bedside chair and remained with call light, tray table, telephone and body alarm for safety. Will continue per POC as tolerated, total treatment time 16 minutes. Herman Sanderson, LINOTYPE OPERATOR
--- NOTE | 2020-05-31 14:16 | NUR ---
Patient discharged to return to the [facility] via [place] at 5PM. NH, nursing, domestic freight forwarder notified and left voicemail for daughter.
[2020-05-31 16:00] VITALS: BP 103/63
--- NOTE | 2020-05-31 18:42 | NUR ---
Discharge instructions reviewed with patient/family. Patient receptive and verbalizes understanding. Follow-up care arranged. Written instructions given to patient/family. RAMON ASTUDILLO
--- NOTE | 2020-05-31 18:43 | NUR ---
ATTEMPTED TO PHOTOGRAPH WOUNDS PER PROTOCOL. PT REFUSED TO COOPERATE.
--- NOTE | 2020-06-01 07:39 | NUR ---
PHYSICAL THERAPY CO-SIGN I approve of the Physical Therapy notes written above. Rona Rucker PT
== END 2020-05-31 18:43 | disposition other institution (70) | DRG 291 ==
LOC: ED 00:37 → 4E 02:37 → EDHOLD 02:37 → 4E 03:08
PROVIDERS: Emergency Medicine; Internal Medicine; Student in an Organized Health Care Education/Training Program; ADMIT Internal Medicine; ATTEND Internal Medicine
PROC: 5A09357 Assistance with Respiratory Ventilation, Less than 24 Consecutive Hours, Continuous Positive Airway Pressure (ICD-10-PCS; principal; 2020-05-28)
DX: I11.0 Hypertensive heart disease with heart failure (principal); J96.01 Acute respiratory failure with hypoxia; G93.41 Metabolic encephalopathy; R65.11 Systemic inflammatory response syndrome (SIRS) of non-infectious origin with acute organ dysfunction; I50.23 Acute on chronic systolic (congestive) heart failure; I48.91 Unspecified atrial fibrillation; F03.90 Unspecified dementia, unspecified severity, without behavioral disturbance, psychotic disturbance, mood disturbance, and anxiety; F41.9 Anxiety disorder, unspecified; R32 Unspecified urinary incontinence; F32.9 Major depressive disorder, single episode, unspecified; I25.10 Atherosclerotic heart disease of native coronary artery without angina pectoris; G40.909 Epilepsy, unspecified, not intractable, without status epilepticus; E78.5 Hyperlipidemia, unspecified; E11.65 Type 2 diabetes mellitus with hyperglycemia; R79.89 Other specified abnormal findings of blood chemistry; E87.6 Hypokalemia; Z66 Do not resuscitate; Z51.5 Encounter for palliative care; Z20.828 Contact with and (suspected) exposure to other viral communicable diseases; E83.39 Other disorders of phosphorus metabolism; Z88.6 Allergy status to analgesic agent; Z85.038 Personal history of other malignant neoplasm of large intestine; I25.2 Old myocardial infarction; Z87.440 Personal history of urinary (tract) infections; Z95.5 Presence of coronary angioplasty implant and graft; Z95.0 Presence of cardiac pacemaker; Z90.710 Acquired absence of both cervix and uterus; Z98.891 History of uterine scar from previous surgery; Z90.49 Acquired absence of other specified parts of digestive tract; Z87.891 Personal history of nicotine dependence; Z82.49 Family history of ischemic heart disease and other diseases of the circulatory system; Z82.5 Family history of asthma and other chronic lower respiratory diseases; Z80.8 Family history of malignant neoplasm of other organs or systems; Z79.899 Other long term (current) drug therapy; Z79.02 Long term (current) use of antithrombotics/antiplatelets; Z79.82 Long term (current) use of aspirin

== ENCOUNTER 2020-06-21 10:31 | Inpatient (IN) | payer MEDICARE, OTHER ==
[~2020-06-21] VITALS: Ht 167.6 cm; Wt 56.6 kg
[~2020-06-21 10:31] MED LIST changes: +K-TAB20 MEQ PO
[2020-06-21 10:38] VITALS: BP 90/60
[2020-06-21 11:05] LABS: BASO % 0.1 % (0.0-1.0); HEMATOCRIT 44.4 % (37.0-47.0); LYMPH # 0.7 10*3/uL (1.3-4.4); LYMPH % 8.3 % (27.0-41.0); MEAN CELL VOLUME 99.1 fl (81.0-99.0); MEAN CORPUSCULAR HGB CONC 31.3 g/dl (33.0-37.0); MEAN PLATELET VOLUME 12.1 fl (9.6-12.3); MONO # 0.7 10*3/uL (0.1-1.0); MONO % 8.1 % (3.0-9.0); NUCLEATED RED BLOOD CELL 0.1 10*3/uL (0.0-0.0); NUCLEATED RED BLOOD CELL 0.7 % (0.0-0.0); PLATELET COUNT AUTOMATED 135 10*3/uL (130-400); RED BLOOD COUNT 4.48 10*6/uL (4.10-5.10); RED CELL DISTRI WIDTH 23.9 % (0-14.5); WHITE BLOOD COUNT 8.4 10*3/uL (4.8-10.8)
[2020-06-21 11:17] LABS: ACT PARTIAL THROMBO TIME 39.6 SECONDS (20.0-32.1); INTERNATIONAL NORM RATIO 2.6 (2.0-3.5)
[2020-06-21 11:20] LABS: ALBUMIN 2.8 gm/dl (3.1-4.5); CREATININE 2.05 mg/dL (0.55-1.02); TOTAL PROTEIN 6.5 gm/dL (6.4-8.2)
[2020-06-21 11:26] LABS: POTASSIUM 6.2 mmol/L (3.5-5.1); TROPONIN I 0.105 ng/ml (<0.045)
[2020-06-21 11:48] VITALS: BP 101/60
[2020-06-21 16:21] LABS: ALBUMIN 2.7 gm/dl (3.1-4.5); CREATININE 2.1 mg/dL (0.55-1.02); TOTAL PROTEIN 6.5 gm/dL (6.4-8.2)
[2020-06-21 18:15] VITALS: BP 100/65
[2020-06-21] MEDS ORDERED: BUSPAR5 MG PO (18:45)
[2020-06-21 20:00] VITALS: BP 104/57
[2020-06-22] VITALS: BP 103/60
[2020-06-22 08:00] VITALS: BP 102/54
[2020-06-22 12:00] VITALS: BP 92/52
[2020-06-22 16:00] VITALS: BP 85/41
[2020-06-22 20:00] VITALS: BP 97/74
== END 2020-06-22 21:33 | disposition hospice, home (50) | DRG 871 ==
LOC: ED 10:31 → EDHOLD 12:20 → 5E 12:20 → EDHOLD 14:05 → 5E 17:53
PROVIDERS: Emergency Medicine; Student in an Organized Health Care Education/Training Program; ADMIT Internal Medicine; ATTEND Internal Medicine
DX: A41.9 Sepsis, unspecified organism (principal); G93.41 Metabolic encephalopathy; J69.0 Pneumonitis due to inhalation of food and vomit; N17.0 Acute kidney failure with tubular necrosis; I50.22 Chronic systolic (congestive) heart failure; I48.91 Unspecified atrial fibrillation; I25.10 Atherosclerotic heart disease of native coronary artery without angina pectoris; F03.90 Unspecified dementia, unspecified severity, without behavioral disturbance, psychotic disturbance, mood disturbance, and anxiety; R65.20 Severe sepsis without septic shock; G40.909 Epilepsy, unspecified, not intractable, without status epilepticus; E87.5 Hyperkalemia; E86.0 Dehydration; E80.6 Other disorders of bilirubin metabolism; I11.0 Hypertensive heart disease with heart failure; R74.01 Elevation of levels of liver transaminase levels; E11.65 Type 2 diabetes mellitus with hyperglycemia; F32.9 Major depressive disorder, single episode, unspecified; Z66 Do not resuscitate; E55.9 Vitamin D deficiency, unspecified; Z88.6 Allergy status to analgesic agent; Z51.5 Encounter for palliative care; Z88.8 Allergy status to other drugs, medicaments and biological substances; Z95.0 Presence of cardiac pacemaker; Z95.5 Presence of coronary angioplasty implant and graft; Z90.710 Acquired absence of both cervix and uterus; Z98.891 History of uterine scar from previous surgery; Z82.49 Family history of ischemic heart disease and other diseases of the circulatory system; Z85.038 Personal history of other malignant neoplasm of large intestine; Z87.81 Personal history of (healed) traumatic fracture; I25.2 Old myocardial infarction

== ENCOUNTER 2020-06-22 21:36 | Inpatient (IN) | payer OTHER, MEDICARE ==
[~2020-06-22 21:36] MED LIST changes: +BUSPAR5 MG PO
[2020-06-22 23:00] VITALS: BP 97/69
[2020-06-23] VITALS: BP 97/69
[2020-06-23 08:00] VITALS: BP 104/71
--- NOTE | 2020-06-23 11:22 | NUR ---
SPEECH THERAPY Patient admitted to hospice care. She is being discharged from speech therapy services as this time. Thank your for your referral. Ann Torrez MA [facility]
[2020-06-23 12:00] VITALS: BP 116/62
--- NOTE | 2020-06-23 12:51 | NUR ---
PT IS [facility]. WILL CONTINUE TO FOLLOW.
--- NOTE | 2020-06-23 13:37 | NUR ---
[facility] CAME TO SEE PATIENT AROUND NOON. DURING VISIT THEY DETERMINED PATIENT NEEDED TO REMAIN GIP, COVID TEST TO BE ORDERRED. PATIENT BECAME RESTLESS DURING VISIT FROM RAY RICHEY LUSTERER, AND COMMUNITY. GAVE PATIENT PRN ATIVAN ORDERRED.
[2020-06-23 16:00] VITALS: BP 111/80
[2020-06-23 20:00] VITALS: BP 107/60
[2020-06-24] VITALS: BP 102/58; BP 132/78
--- NOTE | 2020-06-24 05:34 | NUR ---
PATIENT MEDICATED WITH ATIVAN SL FOR FIDGETING. WILL CONTINUE TO MONITOR. PATIENT MOTTLING IN FEET AND LOWER LEGS. NO SIGNS OR SYMPTOMS OF PAIN. REPOSITIONED FOR COMFORT FREQUENTLY.
[2020-06-24 08:00] VITALS: BP 97/54
--- NOTE | 2020-06-24 08:31 | NUR ---
PT SUCTIONED FOR MODERATE AMT OF SECRETIONS. PT RESTLESS AND FIDGETY. MEDICATED WITH MORPHINE PO PER ORDERS. PT ALSO MEDICATED WITH ATROPINE FOR SECTIONS. WILL MONITOR
--- NOTE | 2020-06-24 08:35 | NUR ---
HOSPICE NURSE VICKI IN TO PT.
--- NOTE | 2020-06-24 09:20 | NUR ---
MEDICATIONS APPEAR EFFECTIVE, PT RESTING. HOSPICE NURSE AT BEDSIDE MAKING ARRANGEMENTS FOR DISCHARGE.
--- NOTE | 2020-06-24 11:30 | NUR ---
Discharge instructions reviewed with patient/family. Family receptive and verbalizes understanding. Written instructions given to patient/family. Hospice to follow patient home. NOEL SOMMER
== END 2020-06-24 11:30 | disposition hospice, home (50) | DRG 871 ==
LOC: 5E 21:36
PROVIDERS: ADMIT Internal Medicine; ATTEND Internal Medicine
DX: A41.9 Sepsis, unspecified organism (principal); J69.0 Pneumonitis due to inhalation of food and vomit; G93.41 Metabolic encephalopathy; N17.0 Acute kidney failure with tubular necrosis; E87.2 Acidosis; C81.00 Nodular lymphocyte predominant Hodgkin lymphoma, unspecified site; I50.22 Chronic systolic (congestive) heart failure; R65.20 Severe sepsis without septic shock; Z88.8 Allergy status to other drugs, medicaments and biological substances; E78.5 Hyperlipidemia, unspecified; E86.0 Dehydration; E83.41 Hypermagnesemia; E80.6 Other disorders of bilirubin metabolism; R74.01 Elevation of levels of liver transaminase levels; Z51.5 Encounter for palliative care; F32.9 Major depressive disorder, single episode, unspecified; I25.10 Atherosclerotic heart disease of native coronary artery without angina pectoris; Z88.5 Allergy status to narcotic agent; I48.91 Unspecified atrial fibrillation; G40.909 Epilepsy, unspecified, not intractable, without status epilepticus; R32 Unspecified urinary incontinence; E11.65 Type 2 diabetes mellitus with hyperglycemia; I11.0 Hypertensive heart disease with heart failure; F03.90 Unspecified dementia, unspecified severity, without behavioral disturbance, psychotic disturbance, mood disturbance, and anxiety; F41.9 Anxiety disorder, unspecified; Z95.0 Presence of cardiac pacemaker; Z79.899 Other long term (current) drug therapy; Z20.828 Contact with and (suspected) exposure to other viral communicable diseases